=== PATIENT | male | born 1950 | race Caucasian/White ===

== ENCOUNTER 2020-04-01 11:09 | Inpatient (IN) | payer MEDICARE, BC ==
[~2020-04-01] VITALS: Ht 175.3 cm; Wt 65.9 kg
[2020-04-01] MEDS ORDERED: BISACODYL 10 MG SUPP PR ONE (12:15)
[2020-04-01] MEDS ORDERED: NS 500 ML IV ONE ×2 (14:30→15:45)
--- NOTE | 2020-04-01 14:36 | REP ---
REASON: Nausea, vomiting, constipation. A few nondilated gas-filled small bowel loops are seen in the right abdomen. The intestinal gas pattern is nonspecific. The organ silhouettes are unremarkable. The osseous structures are within normal limits. IMPRESSION: Possible mild small bowel ileus. Electronically Signed by Rodrigo Curry DO 04/01/2020 02:41 P
[2020-04-01] MEDS: GASTROGRAFIN SOLUTION 30ML PO SCH ×2 (14:55→15:30)
[2020-04-01 15:11] LABS: BASO % 0.3 % (0.0-1.0); EOS # 0.1 10^3/uL (0.0-0.5); EOS % 0.7 % (0.0-3.0); HEMATOCRIT 39.6 % (42.0-52.0); HEMOGLOBIN 13.2 g/dl (13.5-17.5); LYMPH # 0.7 10^3/uL (1.5-5.0); LYMPH % 9.9 % (24.0-44.0); MEAN CORPUSCULAR HEMOGLOBIN 28.6 pg (27.0-33.0); MEAN CORPUSCULAR HGB CONC 33.3 g/dl (32.0-36.5); MEAN CORPUSCULAR VOLUME 85.9 fl (80.0-96.0); MONO # 0.8 10^3/uL (0.0-0.8); MONO % 11.6 % (0.0-5.0); NEUTROPHILS # 5.5 10^3/uL (1.5-8.5); NEUTROPHILS % 77.2 % (36.0-66.0); PLATELET COUNT, AUTOMATED 302 10^3/uL (150-450); RED BLOOD COUNT 4.61 10^6/uL (4.30-6.10); WHITE BLOOD COUNT 7.2 10^3/uL (4.0-10.0)
[2020-04-01] MEDS ORDERED: DEXTROSE 50% 50 ML SYRINGE IV SCH (15:30)
[2020-04-01] MEDS ORDERED: HumuLIN R (REGULAR) INSULIN (NovoLIN R) **100U/ML** PER UNIT IV ONE (15:30)
[2020-04-01] MEDS ORDERED: LIDOCAINE 2% 5ML JELLY UROJET TOP ONE (15:30)
[2020-04-01] MEDS ORDERED: CALCIUM GLUCONATE 1,000 MG in D5W MINI-BAG PLUS 100 ML IV ONE (15:30)
[2020-04-01] MEDS ORDERED: LABETALOL 100MG/20ML VIAL IV STA (17:00)
[2020-04-01] MEDS ORDERED: cefTRIAXone SOD 1 GM in D5W MINI-BAG PLUS 50 ML IV ONE (17:00)
[2020-04-01] MEDS ORDERED: MORPHINE 2 MG/ML 1ML VIAL (J2270) IV ONE (17:00)
[2020-04-01] MEDS ORDERED: ACETAMINOPHEN TAB 650MG DOSE (2X325MG) PO PRN (17:30)
[2020-04-01 18:48] LABS: ALBUMIN 3.6 GM/DL (3.2-5.2); CALCIUM LEVEL 9.1 MG/DL (8.8-10.2); CREATININE FOR GFR 15.7 MG/DL (0.70-1.30); GLOMERULAR FILTRATION RATE 3.3 (>42); PHOSPHORUS LEVEL 7.8 MG/DL (2.5-4.9); POTASSIUM SERUM 5.4 MEQ/L (3.5-5.1)
[2020-04-01 18:50] VITALS: BP 186/92
[2020-04-01 20:00] VITALS: BP 160/90
--- NOTE | 2020-04-01 20:17 | CR ---
DATE OF CONSULTATION: 04/01/2020 REQUESTING PHYSICIAN: Dr. Kate in the emergency room. CONSULTING PHYSICIAN: Dr. Bhargavi aCt REASON FOR CONSULTATION: Management of renal failure, hyperkalemia and metabolic acidosis. CHIEF COMPLAINT: The patient presented to the hospital with constipation, difficulty with urination, and progressive weakness. HISTORY OF PRESENT ILLNESS: Mr. Jamie Evans is a 69-year-old male with no significant past medical history. He has not seen a physician for more than 5 years; last time he ever saw a physician was when he was in the [employer] in 2014. He does not take any medications at home, and he regularly does exercise. He reports that he walks almost 5 miles a day. He presented to the hospital emergency room today because of progressive weakness, nausea, decreased appetite, which has been going on for the last 3 months almost. The patient reports that he is getting more and more constipated. He has a bowel movement almost once a week. Last time he had a bowel movement before coming to the emergency room (ER) was about 5 days ago. He also reports difficulty with urination, and he has to exert a lot, and every time he tries to urinate, a very small amount of urine comes out. His appetite is decreasing, and he is getting more and more nauseated nowadays. He usually walks about 5 miles a day, but his strength is decreasing, and he is unable to walk a few yards now because of weakness and lack of energy. Further evaluation in the emergency room showed that the patient was in renal failure. Point of care testing in the emergency room showed that his creatinine was more than 20. He had a potassium of 7.2 and blood urea nitrogen was more than 140. The patient needed my immediate attention. I emergently saw the patient in the emergency room today in the afternoon. The patient was able to provide his history when I saw him. He had already gotten IV normal saline bolus by the time I saw him. He had already been given IV calcium gluconate as well. PAST MEDICAL HISTORY: No significant past medical history. The patient denies any medical issues, and he does not take any medications. PAST SURGICAL HISTORY: No significant past surgical history. ALLERGIES: No known drug allergies. FAMILY HISTORY: No significant family history of end-stage renal disease requiring hemodialysis. SOCIAL HISTORY: The patient lives at home. He is very active. He denies any illicit drug abuse or alcohol abuse. REVIEW OF SYSTEMS: Constitutional: Patient reports feeling very weak and tired. Eyes: He denies any blurry vision, double vision. Ear, Nose, Throat (ENT): Denies any dysphagia, odynophagia or ear discharge. Cardiovascular: He reports shortness of breath on mild exertion. He denies any palpitations or lower extremity edema. Respiratory: He denies any cough or phlegm. He does report getting short of breath on mild exertion. Gastrointestinal (GI): He reports nausea and decreased appetite and constipation. Genitourinary: He reports decreased urine output and difficulty with urination. Musculoskeletal: He reports muscle fatigue. Skin: He denies any rashes or ulcers/ Hematology/Oncology: He denies any easy bleeding or bruising. Endocrine: He denies any history of hyperthyroidism, hypothyroidism, polyphagia or polyuria. Psych: He denies any depression or anxiety. All other review of systems is negative. PHYSICAL EXAMINATION: General: The patient is awake, alert, oriented times three, laying in bed, mild painful distress. Vital signs: Temperature is 97.7 degrees Fahrenheit, blood pressure 187/98, pulse is 88, respiratory rate of 18, saturating 99% on room air. Head and Neck Exam: Extraocular muscles intact. Pupils equally round and reactive to light. Mucous membranes are moist. Tongue has white coating. Neck is supple. Mild elevation of jugular venous distention (JVD). Cardiovascular: S1, S2, regular rate. No edema of the bilateral lower extremities. Respiratory: Chest is clear to auscultation bilaterally. Bilateral equal air entry. No rales or rhonchi. Abdomen is soft. It is distended. Mildly tender to deep rotation in suprapubic region. His bladder is palpable starting from with suprapubic region all the way up to his umbilicus. Bedside bladder scan was done which showed more than 900 mL of residual urine in the bladder. Genitourinary: No inguinal hernia was noted and bladder was palpable as mentioned above. Musculoskeletal: No clubbing or cyanosis. Pulses are 2+. Central nervous system (SCAN COORDINATOR): No focal deficit. No asterixis was noted. The patient moves all extremities and follows commands. Skin: No rashes or ulcers. Lymph nodes: No significant cervical, axillary, or inguinal lymphadenopathy. LAB REVIEW: CBC showed a WBC of 7.2, hemoglobin 13.2, platelets are 302. No urinalysis is available at this time. Point of care BMP done originally showed glucose 96, sodium 133, potassium 7.2, chloride 109, bicarbonate of 13, ionized calcium 3.9, creatinine 20 and hematocrit was 34. Point of care blood gas showed a pH of 7.23. IMAGING STUDIES: An abdominal x-ray was done, which showed mild small bowel ileus. The patient also had CT scan of the abdomen and pelvis. Official report is still pending. However, as read by myself, the patient had urinary retention, bladder was enlarged up to his umbilicus, and he had bilateral hydroureteronephrosis. HOME MEDICATIONS: The patient does not take any medications at home. CURRENT MEDICATIONS: The patient has received 500 mL of normal saline bolus times two doses so far, and he received calcium gluconate 1 gram IV. ASSESSMENT: 69-year-old male with acute renal failure, urinary retention, bilateral hydroureteronephrosis, high anion gap metabolic acidosis, hyperkalemia. PLAN: 1. Acute renal failure. The patient has acute renal failure secondary to bilateral hydroureteronephrosis and obstructive uropathy. He got a Louis catheter placed in the emergency room. More than 1 liter of urine came out. Urine was initially clear, later on it was blood tinged. I am hopeful that patient's renal function will improve over the next 24-48 hours. I would avoid doing hemodialysis on this patient. 2. High anion gap metabolic acidosis. It is secondary to renal failure. The patient will get IV bicarb containing fluid, half-normal saline plus 75 mEq of bicarb at 150 mL an hour for a total of 2 liters. Bicarb level should improve with improvement in the renal function. 3. Hyperkalemia. The patient's potassium on arrival was more than 7. Hyperkalemia secondary to metabolic acidosis and renal failure. With postobstructive diuresis, patient's potassium should improve, and I believe the patient would actually need potassium repletion with improving renal function and diuresis. 4. Obstructive uropathy and bilateral hydroureteronephrosis. The patient has an enlarged prostate on the imaging. His PSA level was done in the emergency room, which is 9.3. There is a high likelihood that the patient might have of a malignancy in the prostate because I see some calcifications in the prostate as well. Continue the Louis catheter at this time. The patient has been started on Flomax and finasteride, and once he is more stable, he will need to be seen by urology as well for prostate biopsy. 5. Hyperphosphatemia. It is secondary to renal failure. Phosphorus level should improve with improving renal function. 6. Hypertensive urgency. It is secondary to a combination of pain, obstructive uropathy and renal failure. The patient was given a dose of labetalol 10 mg IV in the emergency room by myself. I am hopeful that with further diuresis, his blood pressure should improve and he would not require a regular antihypertensive regimen. 7. Hematuria. It is secondary to decompression of the bladder after insertion of Louis catheter. Hopefully his hematuria should improve over the next 24-48 hours. The patient was given one dose of ceftriaxone 1 gram IV. Urinalysis and urine culture has been sent. PLAN: Plan of care was discussed with the ER physician, Dr. Kate, and also with the admitting medical practice assistant. Total critical care time spent in the management of this patient today afternoon in the emergency room was 1 hour and 40 minutes.
[2020-04-01] MEDS: SODIUM BICARBONATE 75 MEQ in NS 0.45% 1,000 ML IV SCH (20:22)
[2020-04-01] MEDS: HEPARIN SOD (PORCINE) 5000UNITS/ML VIAL (J1644 PER 1000UNITS) SC SCH (20:22)
[2020-04-01] MEDS: TAMSULOSIN 0.4 MG CAP PO SCH (20:23)
[2020-04-01] MEDS: FINASTERIDE 5 MG TAB PO SCH (20:23)
[2020-04-01 21:47] LABS: CALCIUM LEVEL 8.4 MG/DL (8.8-10.2); CREATININE FOR GFR 11.9 MG/DL (0.70-1.30); GLOMERULAR FILTRATION RATE 4.5 (>42); POTASSIUM SERUM 4.9 MEQ/L (3.5-5.1)
[2020-04-01] MEDS ORDERED: POTASSIUM CHLORIDE 10 MEQ SR TABLET PO ONE (23:15)
--- NOTE | 2020-04-01 23:28 | IPNPDOC ---
Text Note Date of Service The patient was seen on 04/01/20. Of note this is his H&P done in conjunction with one of the residents I am supervising today. NOTE CHIEF COMPLAINT: Constipation and urinary retention HISTORY OF PRESENT ILLNESS: Juan Ayala is a 69 years old male patient who came into the emergency department with complaints of constipation for the last 5 days, and decreased urine output since 5 days. His last bowel movement was 6 days ago hard stool, no blood. He reports having decreased appetite and decreased fluid intake as he is not able to urinate. He reports having nausea. Denies having any vomiting. He reports having mild headaches and was taking aspirin. PAST MEDICAL HISTORY: He denies having any past medical history (his last contact with a doctor was in 2014 for a physical examination) PAST SURGICAL HISTORY: 1. Appendectomy at age 15 2. Tonsillectomy at age 4 SOCIAL HISTORY: Resides in: By Himself and has a pet (cat) Employment: Retired. Previous worked at [employer] Tobacco use: Stopped smoking in 1995. Smoked 2 PPD started at age 15 ETOH: Stopped in 1995 Illicit drug use: Denies IV drug use: Denies Other relevant social factors: None FAMILY HISTORY: No pertinent positive family history. Denies having any cancers in the family. ALLERGIES: Please see below. REVIEW OF SYSTEMS: Constitutional: Denies having fever, chills, night sweats, weight loss. 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 Denies any blurry vision or double vision. ENT: Dry lips and dry tongue,Denies any dysphagia, odynophagia, ear discharge. Cardiovascular: Denies any chest pain or palpitations. Respiratory: Denies shortness of breath and cough. Gastrointestinal (GI): Denies any nausea or vomiting. Genitourinary:Has been having constipation and urinary retention. Musculoskeletal: Denies any muscle aches and pains. Skin: Denies any rashes or ulcers. Hematology/Oncology: Denies any easy bleeding or bruising. Endocrine: Denies cold intolerance, heat intolerance, polydipsia, polyphagia, polyuria All other review of systems is negative. HOME MEDICATIONS: Please see below. PHYSICAL EXAMINATION: Vital Signs: See below General: Well developed, built: normal. Patient is awake, alert, oriented times three, on bed and acute distress from lower abdominal pain. Eyes: Conjunctiva clear, but a R ectropion is noted. Pupils equal round and reactive to light and accommodation. EOM full. ENT: Diminished hearing bilaterally and reports having tinnitus. No nasal deviation, oropharynx clear and dry . Neck: supple, no masses, trachea midline, no thyroid nodules, masses, tenderness or enlargement. Cardiovascular: S1, S2, normal rhythm, no murmur, rub, or gallop; no JVD, no displacement of PMI, no carotid or abdominal bruits. Pulses: Carotid, radial, posterior tibialis and pedal 3+ symmetric, no edema. Respiratory: Chest is clear to auscultation bilaterally, normal tactile fremitus, no egophony, normal respiratory effort with no use of accessory muscles. No dullness to percussion, diaphragm moves well with respiration. No rhonchi, wheezes or rubs. Abdomen: Soft, bowel sounds positive, no bruits. Has tenderness on palpation of the lower abdomen. Liver edge, spleen, kidney not felt, no masses. Extremities: No clubbing or cyanosis. No edema, no tenderness. Spine: No kyphosis, no paraspinal tenderness, no costovertebral tenderness. Skin: No rashes, lesions, ulcerations, subcutaneous nodules or induration. LABORATORY DATA: See below. IMAGING: Abdominal x-ray: IMPRESSION: Possible mild small bowel ileus. Abdominal/pelvic CT: Report pending ASSESSMENT: 69-year-old male patient with no known medical comorbidities, came into the emergency department with constipation and urinary retention. . PLAN: 1. Metabolic acidosis: Emergency department, patient had a pH of 7.2, HCO3: 10.7, PCO2 : 25.1, will give him half NS, D5, HCO3 X 2 L. Will get urine analysis and urine cultures to rule out infection. We will monitor him monitored in PCU. 2. Hyperkalemia: potassium 7.2, EKG showing tall T waves. . He did get calcium gluconate/dextrose and IV fluids in the ED. Now on a bicarbonate drip managed by nephrology to help stabilize his potassium levels. BMP are being checked every 4 hours. 3. Severe EVERARDO, secondary to an obstructive uropathy: Nephrology was consulted and will follow him with us. I am hopeful that he will regain full renal function. 4. BPH: Primary cause for acute urinary retention, abdominal/pelvic CT showing prostate hypertrophy we will get his PSA, will start him on Rocephin and finasteride. The PSA may be elevated b/c of the recent catheterization. 5. Constipation: His constipation is more likely due to enlarged prostate and distended urinary bladder. Will monitor. If doesnt improve, will give him Colace. 6. Anorexia: His decreased appetite was due to distended abdomen 7. Elevated blood pressure: Most likely due to pain. Morphine 2 mg IV was given. DVT prophylaxis: Heparin 5000 units Q12H Disposition: Patient will be transferred to PCU and will be conducted to telemetry for further monitoring of his electrolytes and tachycardia. VS,Fishbone, I+O VS, Fishbone, I+O Laboratory Tests 04/01/20 14:51 04/01/20 17:48 04/01/20 21:05 Vital Signs Date Time Temp Pulse Resp B/P (MAP) Pulse Ox O2 Delivery O2 Flow Rate FiO2 04/01/20 20:00 98.4 66 16 160/90 (113) 98 Room Air Mango Rubi MD Apr 01, 2020 23:28
[2020-04-02] VITALS: BP 160/83
[2020-04-02 01:34] LABS: CALCIUM LEVEL 8.4 MG/DL (8.8-10.2); CREATININE FOR GFR 9.2 MG/DL (0.70-1.30); GLOMERULAR FILTRATION RATE 6.1 (>42); POTASSIUM SERUM 4.8 MEQ/L (3.5-5.1)
[2020-04-02 04:00] VITALS: BP 180/87
[2020-04-02] MEDS: SODIUM BICARBONATE 75 MEQ in NS 0.45% 1,000 ML IV SCH (04:12)
[2020-04-02 05:15] LABS: HEMOGLOBIN 11.4 g/dl (13.5-17.5); MEAN CORPUSCULAR HGB CONC 34.5 g/dl (32.0-36.5); PLATELET COUNT, AUTOMATED 309 10^3/uL (150-450); RED BLOOD COUNT 3.93 10^6/uL (4.30-6.10)
[2020-04-02 05:44] LABS: CALCIUM LEVEL 8.3 MG/DL (8.8-10.2); CREATININE FOR GFR 8.23 MG/DL (0.70-1.30); GLOMERULAR FILTRATION RATE 6.9 (>42); POTASSIUM SERUM 5.7 MEQ/L (3.5-5.1)
[2020-04-02 08:00] VITALS: BP_SYST 139; BP_SYST 179; BP_DIAS 65; BP_DIAS 82
--- NOTE | 2020-04-02 08:03 | ECGEPIP ---
[facility] - ED Test Date: 2020-04-01 Pat Name: FAVIO CORDERO Department: Room: - Gender: Male Field Sales Engineer: : 1950 Requested By: PAVEL GOLDBERG PA-C. Order Number: [id number] Reading MD: Jack Wilcox Measurements Intervals [place] Rate: 74 P: 62 MI: 140 QRS: 53 QRSD: 82 T: 45 QT: 360 QTc: 400 Interpretive Statements SINUS RHYTHM NO PRIORS FOR COMPARISON Electronically Signed on 04-02-2020 8:03:16 EDT by Jack Wilcox
[2020-04-02] MEDS: amLODIPine 5 MG TAB PO SCH (08:38)
[2020-04-02] MEDS: HEPARIN SOD (PORCINE) 5000UNITS/ML VIAL (J1644 PER 1000UNITS) SC SCH ×2 (08:39→20:18)
--- NOTE | 2020-04-02 08:42 | REP ---
REASON: Abdominal pain. Renal failure. PRIORS: None. The lack of intravenous contrast decreases the sensitivity of the exam. There is ascites. There is rather marked bilateral perinephric stranding with both Gerota's and Zuckerkandl fascial thickening. This is seen greater on the left than right. There is bilateral hydronephrosis and hydroureter. Urinary bladder is grossly distended. Along the posterior inferior flow of the urinary bladder, there is an irregular soft tissue density, which is difficult to delineate between that and abnormally enlarged irregular prostate gland invaginating into the urinary bladder floor. There is corpora amylacea. The gallbladder, spleen, pancreas, adrenal glands are unremarkable. The abdominal aorta and para-aortic regions are within normal limits. There is no intestinal obstruction. The bowel loops are within normal limits. Bone window technique throughout the examination shows the osseous structures to be within normal limits for the patient's age. There is a slight left pleural effusion and evidence of left lower lobe and evidence of subsegmental atelectatic change. IMPRESSION: 1. There is marked distention of the urinary bladder with evidence of a urinary bladder floor mass versus invagination of an irregular prostate gland into the posterior urinary bladder. This needs to be evaluated urologically. 2. There is advanced thickening of Zuckerkandl and Gerota fascia bilaterally but left greater than right with advanced bilateral perinephric stranding. This needs to be followed to resolution. 3. There is ascites of uncertain etiology. This too, needs to be evaluated clinically with followup. 4. There is a slight left pleural effusion with evidence of dependent subsegmental atelectatic change in the left lung base. Correlate clinically to right upper lobe out the possibility of subtle concomitant left lower lobe pneumonia. 5. Other findings as described above. Electronically Signed by Rodrigo Curry DO 04/02/2020 05:18 P
[2020-04-02] MEDS ORDERED: PREVNAR 13 VACCINE SYRINGE (CPT CODE:90670) IM ONE (09:00)
[2020-04-02 09:44] LABS: CALCIUM LEVEL 8.6 MG/DL (8.8-10.2); CREATININE FOR GFR 7.16 MG/DL (0.70-1.30); GLOMERULAR FILTRATION RATE 8.1 (>42); POTASSIUM SERUM 4.9 MEQ/L (3.5-5.1)
[2020-04-02] MEDS ORDERED: MIRALAX *UNIT DOSE* 17GM PACKET PO ONE (11:15)
[2020-04-02] MEDS: NS 0.45% 1,000 ML IV SCH ×2 (11:25→18:17)
--- NOTE | 2020-04-02 11:37 | IPNPDOC ---
Text Note Date of Service The patient was seen on 04/02/20. NOTE SUBJECTIVE: Patient was seen and examined today laying comfortably in bed. He state the pressure in his abdomen has improved. He continues to feel pressure in his low back and states this improved by standing up and stretching. He continues to have hematuria draining out the hinton. OBJECTIVE: VITAL SIGNS: See below GENERAL: Alert, comfortable, in no acute distress HEENT: Normocephalic, atraumatic, sclera anicteric, conjunctiva clear, moist mucous membranes NECK: Supple, trachea midline, no lymphadenopathy, no JVD CARDIOVASCULAR: Regular rate and rhythm, normal S1 and S2. No murmurs, rubs, or gallops RESPIRATORY: Clear to auscultation bilaterally with equal air entry bilaterally. No wheezing, rhonchi, or rales. ABDOMEN: Soft, nondistended, bowel sounds present, mildly tender to deep palpation of the suprapubic region. EXTREMITIES: No cyanosis or edema. Pulses 2+/4 in bilateral upper and lower extremities SKIN: [place], warm, dry NEUROLOGIC: Alert and oriented x3 to person, place and time. No focal deficits appreciated PSYCHIATRIC: Mood and affect appropriate ASSESSMENT/PLAN: 69 year old male who presented with acute renal failure with urinary retention secondary to enlarged prostate # Acute renal failure secondary to obstructive uropathy with bilateral hydro nephrosis - obstruction temporarily relieved with hinton catheter placement, pt continues to have good urine output - Cr trending down, continue to monitor for improvement - nephrology consulted, appreciate their input and recommendations - continue on tamsulosin and finasteride per nephrology # Hypertensive urgency - secondary to urinary retention and pain s/p IV labetalol - improved today, started on oral amlodipine, continue to monitor - no history of underlying HTN but patient does not follow with a PCP # Enlarged prostate secondary to cancer vs BPH - enlarged prostate on CT with microcalcifications - elevated PSA at 9.3, drawn after hinton was placed - urology consulted for evaluation and r/o prostate cancer, appreciate their input and recommendations # Hematuria - likely related to bladder overdistention, expect this to resolve over the next day - UA pending to rule out infection, one dose IV rocephin given, may continue abx based on UA results # Elevated anion gap metabolic acidosis, improved - secondary to acute renal failure as discussed above - s/p IV fluids with bicarb, continue with IV fluids per nephrology - anion gap has closed, bicarb has improved - continue on telemetry # Hyperkalemia and Hyperphosphatemia, improving - related to renal failure, continue to trend for improvement - continue on telemetry # Constipation - suspect secondary to obstruction from enlarged prostate and distended urinary bladder - consider enema if no BM by tomorrow DVT prophylaxis: sc heparin Disposition: inpatient PCU pending clinical improvement and stabilization of electrolyte abnormalities Attending attestation: Patient independently evaluated, agree with resident's plan. VS,Fishbone, I+O VS, Fishbone, I+O Laboratory Tests 04/01/20 14:51 04/01/20 17:48 04/01/20 21:05 04/02/20 00:53 04/02/20 04:59 04/02/20 08:47 Vital Signs Date Time Temp Pulse Resp B/P (MAP) Pulse Ox O2 Delivery O2 Flow Rate FiO2 04/02/20 08:38 78 179/82 04/02/20 08:00 99.3 16 96 Room Air I&O- Last 24 Hours up to 6 AM 04/02/20 05:59 Intake Total 1865 ml Output Total 5650 ml Balance -3785 ml PRISCILA ROJAS D.O. Apr 02, 2020 11:37 JULIO MICHAEL MD Apr 06, 2020 10:31
[2020-04-02 11:44] LABS: MAGNESIUM LEVEL 2.1 MG/DL (1.8-2.4)
[2020-04-02 12:00] VITALS: BP 146/69
[2020-04-02 13:18] LABS: BILIRUBIN, URINE MANUAL NEGATIVE (NEGATIVE); GLUCOSE, URINE (UA) MANUAL NEGATIVE (NEGATIVE); KETONE, URINE MANUAL NEGATIVE (NEGATIVE); UROBILINOGEN, URINE MANUAL NORMAL (NORMAL)
[2020-04-02 13:25] LABS: BACTERIA, URINE NONE SEEN; HYALINE CAST, URINE NONE SEEN /lpf (0-1); RBC, URINE TNTC /hpf (0-3); SQUAMOUS EPITHELIAL CELL URINE NONE SEEN /hpf (SMALL AMT)
[2020-04-02 13:26] LABS: MUCUS, URINE SMALL AMOUNT (NEGATIVE)
[2020-04-02 13:34] LABS: CALCIUM LEVEL 8.3 MG/DL (8.8-10.2); CREATININE FOR GFR 5.72 MG/DL (0.70-1.30); GLOMERULAR FILTRATION RATE 10.5 (>42); POTASSIUM SERUM 4.8 MEQ/L (3.5-5.1)
--- NOTE | 2020-04-02 14:44 | IPN ---
DATE OF SERVICE: 04/02/2020 SUBJECTIVE: The patient was seen and examined at the bedside today morning. The patient reports that he is feeling much better today as compared with yesterday. His e abdominal pain is getting better. He still has an indwelling Louis catheter. He has very good urine output. He is making more than 150 mL of urine per hour. Renal function continues to improve. Acidosis is improving. Hyperkalemia is also getting better. He still has mild persistent hematuria and blood pressures are still elevated as of today morning. OBJECTIVE: Vital Signs: Temperature is 99.3 degrees Fahrenheit, blood pressure 179/82, pulse is 78, respiratory rate of 16, saturating 96% on room air. Intake/Output: Urine output recorded is 3.1 liters since overnight. Weight in the bed scale is 65.8 kg. PHYSICAL EXAMINATION: General: The patient is awake, alert, oriented times three, laying in bed, in no apparent distress. Head/Neck Exam: Extraocular muscles intact. Pupils equally round and reactive to light. Mucous membranes are moist. Neck is supple. There is no jugular venous distention (JVD). Cardiovascular: S1, S2, regular rate. No edema of the bilateral lower extremities. Respiratory: Chest is clear to auscultation bilaterally. Bilateral equal air entry. No rales or rhonchi. Abdomen: Soft. Mildly tender to deep palpation in the left lower quadrant and suprapubic region. Genitourinary: He has an indwelling Louis catheter. Urine in the bag is blood tinged. Musculoskeletal: No clubbing or cyanosis. Pulses are 2+. Central Nervous System (MEDICAL BILLING REPRESENTATIVE): No focal deficit. Power is 5/5 in all extremities. LAB REVIEW: Complete blood count (CBC) showed WBC of 7, hemoglobin 11.4, platelets of 309. Basic metabolic panel (BMP) showed sodium 142, potassium 4.9, chloride 109, bicarbonate 23, BUN 93, creatinine is 7.1, calcium is 8.6. IMAGING: Official report of the CT scan abdomen and pelvis is back. It shows marked distension of the urinary bladder and irregular prostate gland with invagination into the bladder and advanced thickening of the Zuckerkandl and Gerota fascia bilaterally. CURRENT INPATIENT MEDICATIONS: The patient's medications were all reviewed by myself. He was getting half normal saline plus 75 mEq bicarbonate at 150 mL/h. He had gotten 2 liters of bicarbonate containing fluid. Now, I have changed the IV fluids to half normal saline at 150 mL/h. I have also started him on amlodipine 5 mg by mouth daily because of elevated blood pressures. No other significant change in the medications today as compared with yesterday. ASSESSMENT/PLAN: 1. Acute renal failure. It was secondary to obstructive uropathy and bilateral hydroureteronephrosis. The patient is making very good amount of urine. His creatinine, BUN is trending down since yesterday. Continue the IV fluid hydration and continue to encourage oral hydration. The patient's IV fluids have been changed to half normal saline at 150 mL/h for postobstructive diuresis. 2. High anion gap metabolic acidosis. The patient's bicarbonate level is significantly getting better with the IV bicarbonate containing fluids and with the improving renal function his bicarbonate should stay stable. IV bicarbonate has been stopped. He is only getting half normal saline now. No need of oral bicarbonate administration. 3. Hyperkalemia. Potassium level has improved. I actually gave him a dose of potassium chloride 40 mEq last night. With postobstructive diuresis we have to watch him now for hypokalemia. 4. Obstructive uropathy and mass in the prostate. The patient has elevated prostate-specific antigen (PSA) levels. There is a mass in the prostate. He needs to be evaluated by urology for a biopsy to rule out possible cancer of the prostate. 5. Hypertension. The patient's blood pressure is still elevated. He was started on amlodipine 5 mg daily. I am hopeful that once his renal function improves his blood pressure should get better. 6. Hematuria. The patient had hematuria after Louis catheter placement, which is coming from the bladder. Hopefully it should get better over the next 24-48 hours. 7. Constipation. The patient is still passing gas. He has not had a bowel movement. He was given a dose of MiraLAX today. If needed, he will be given mineral oil enema tomorrow morning.
[2020-04-02 16:00] VITALS: BP 140/66
[2020-04-02 17:14] LABS: CREATININE FOR GFR 4.89 MG/DL (0.70-1.30); GLOMERULAR FILTRATION RATE 12.6 (>42); POTASSIUM SERUM 4.5 MEQ/L (3.5-5.1)
[2020-04-02 20:00] VITALS: BP 150/79
[2020-04-02] MEDS: TAMSULOSIN 0.4 MG CAP PO SCH (20:17)
[2020-04-02] MEDS: FINASTERIDE 5 MG TAB PO SCH (20:18)
--- NOTE | 2020-04-02 21:29 | SMCUROLCON ---
Urology Consultation General Date of Consultation 04/02/20 Reason For Consultation This patient is seen for urinary retention, BPH, elevated PSA 9.3, hematuria, and bilateral hydroureteronephrosis. History of Present Illness The patient is a 69-year-old white male with no past medical history for BPH or voiding problems. He states that he normally voids about every 2 hours day and night and has good control of his urine flow, no urgency or difficulty initiating or stopping urinary stream. In the last 6 weeks or so, this is began to change and at times he feels like he has to void every 30 minutes. He finally presented to the emergency room with complaints of constipation for about a week with decreased urine output for about the same length of time. He states he has not been eating or drinking much because he just has not had any thirst or appetite. When he does feel like he needs to void, he has difficulty initiating the urinary stream, now. Upon presentation to the hospital, CT scan was obtained showing the patient had an extremely large bladder up to the umbilicus and, when a Louis catheter was inserted, a liter of urine was drained. The latter part of the urine flow became hematuric. His PSA was also tested and was 9.3. He states he has never had a colonoscopy or a prostate exam in the past. He scan also showed bilateral hydroureteronephrosis and laboratory studies showed acute renal insufficiency with a low EGFR. Past Medical History Medical History Denies any medical problems Surgical Hstory Appendectomy at age 15. 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 He states he normally walks 4 miles a day, which takes him 2 hours. * Smoker: former Smoker Alcohol: other (patient stopped drinking in 1995) Drugs: denies Medications Current Medications Current Medications Medications (Trade) Dose Ordered Sig/Juliann Route PRN Reason Start Time Stop Time Status Last Admin Dose Admin Acetaminophen (Tylenol Tab) 650 mg Q4H PRN PO PAIN OR FEVER 04/01/20 17:30 Amlodipine Besylate (Norvasc) 5 mg DAILY PO 04/02/20 09:00 04/02/20 08:38 Dextrose (Dextrose 50%) 50 ml ASDIRECTED IV 04/01/20 15:30 04/01/20 15:47 Diatrizoate Meglum/ Diatrizoate Sod (Gastrografin) 10 ml Q30M PO 04/01/20 15:00 04/01/20 15:31 DC 04/01/20 14:55 Finasteride (Proscar) 5 mg QHS PO 04/01/20 21:00 04/02/20 20:18 Heparin Sodium (Porcine) (Heparin) 5,000 units Q12H SC 04/01/20 21:00 04/02/20 20:18 Home Med (Med Rec Complete!) ASDIRECTED XX 04/01/20 16:15 04/01/20 16:08 DC Labetalol HCl (Normodyne, Trandate) 10 mg STAT STAT IV 04/01/20 17:00 04/01/20 17:04 DC 04/01/20 17:51 Sodium Bicarbonate 75 meq/Sodium Chloride 1,075 ml @ 150 mls/hr Q7H10M IV 04/01/20 20:00 04/02/20 09:19 DC 04/02/20 04:12 Sodium Chloride 1,000 ml @ 150 mls/hr Q6H40M IV 04/02/20 11:15 04/03/20 11:14 04/02/20 18:17 Tamsulosin HCl (Flomax) 0.4 mg QHS PO 04/01/20 21:00 04/02/20 20:17 Allergies Allergies: Coded Allergies: No Known Allergies (Unverified , 04/01/20) Review of Systems General: Reports: Normal Appetite; Denies: Fatigue, Malaise Constitutional: Denies: Fever, Chills, Sweats, Weakness, Malaise Eyes: Denies: Pain, Vision change ENT: Denies: Head Aches, Sore Throat, Epistaxis Skin: Denies: Rash, Lesions, Breakdown, Nail Changes Pulmonary: Denies: Dyspnea, Cough Cardiovascular: Denies Chest Pain, Denies Palpitations Gastrointestinal: Reports: Constipation Genitourinary: Reports: Retention Hematologic: Denies: Bruising, Bleeding Excessively Endocrine: Denies: Polydipsia, Polyphagia, Polyuria Musculoskeletal: Reports: Other Symptoms (muscle weakness); Denies: Neck Pain, Back Pain Psych: Reports: Mood Normal; Denies: Anxiety, Depression Physical Examination General Exam: Alert, No Acute Distress EYE EXAM: PERRLA, Conjunctiva & lids normal, EOMI; No: Sclera icteric ENT EXAM: Atraumatic, Mucous membr. moist/pink, Pharynx Normal Neck Exam: Supple; No: JVD, thyromegaly Chest Exam: Clear to auscultation, Normal air movement Heart Exam: Rate Normal, Regular Rhythm, Normal S1, Normal S2; No: Murmurs, Rubs Abdomen Exam: Normal Bowel Sounds, Soft; No: Tenderness, Hepatospenomegaly Male Exam Penis is uncircumcised with an indwelling Louis catheter. Scrotum, testicles, epididymides, perineum are normal. Rectal: Good sphincter tone, although tight area. The prostate is 70 or 80 g in size. The right side is larger than the left. No indurations are present. Skin Exam: Nl turgor and temperature; No: Rash, Breakdown Neuro Exam: Normal Gait, Normal Speech, Cranial Nerves 3-12 NL, Reflexes 2+ Psych Exam: Mental status NL, Mood NL, Oriented x 3 Vital Signs/I&O Vital Signs Date Time Temp Pulse Resp B/P (MAP) Pulse Ox O2 Delivery O2 Flow Rate FiO2 04/02/20 16:00 99.6 76 18 140/66 (90) 93 Room Air I&O- Last 24 Hours up to 6 AM 04/02/20 06:00 Intake Total 1865 ml Output Total 5650 ml Balance -3785 ml Laboratory Data 24H Labs Laboratory Tests 2 04/02/20 00:53: Anion Gap 12, Glomerular Filtration Rate 6.1L, Calcium Level 8.4L 04/02/20 04:59: Anion Gap 13, Glomerular Filtration Rate 6.9L, Calcium Level 8.3L, Nucleated Red Blood Cells % (auto) 0.0 04/02/20 08:47: Anion Gap 10, Glomerular Filtration Rate 8.1L, Calcium Level 8.6L, Magnesium Level 2.1 04/02/20 11:30: Urine Color (OMAR) BROWNH, Urine Appearance (OMAR) CLOUDYH, Urine pH (OMAR) 5.0, Urine Specific [place] (OMAR) 1.012, Urine Protein 3+H, Bedside Urine Glucose (UA) NEGATIVE, Bedside Urine Ketones (LAB) NEGATIVE, Bedside Urine Blood POSITIVEH, Bedside Urine Nitrite (LAB) NEGATIVE, Bedside Urine Bilirubin (LAB) NEGATIVE, Bedside Urine Urobilinogen (LAB) NORMAL, Bedside Urine Leukocyte Esterase (L TRACEH, Urine Sediment Examination PERFORMED, Urine RBC TNTCH, Urine WBC 0-1, Urine Squamous Epithelial Cells NONE SEEN, Urine Bacteria NONE SEEN, Urine Hyaline Casts NONE SEEN, Urine Mucus SMALL AMOUNTH 04/02/20 12:58: Anion Gap 7L, Glomerular Filtration Rate 10.5L, Calcium Level 8.3L 04/02/20 16:37: Anion Gap 8, Glomerular Filtration Rate 12.6L, Calcium Level 8.0L CBC/BMP Laboratory Tests 04/02/20 00:53 04/02/20 04:59 04/02/20 08:47 04/02/20 12:58 04/02/20 16:37 Microbiology Microbiology 04/02/20 Urine Culture, Received Pending Assessment I reviewed the CT scan. The bladder was extremely large but reports held a liter of urine. The prostate is very generous in size - measuring about 127 gms - with a large median lobe which appears somewhat irregular protruding into the bladder. There are also some prostate calcifications present which are not particularly unusual. Hydroureter ureteronephrosis, which most likely is due to his urinary retention. This should resolve with Louis catheterization. Hematuria is also likely to bladder decompression and this should resolve within 24 hours. I would keep Louis catheter indwelling until constipation has improved. I also agree with continuing with his tamsulosin and finasteride. If the urine should not clear, he may need either continuous bladder irrigation or manual irrigation periodically. PSA of 9.3 could be due to an enlarged and inflamed prostate, but of course prostate cancer should be ruled out. He likely will need a cystoscopic evaluation at the very least to evaluate the bladder outlet obstruction. Also, consideration to a transurethral ultrasound of the prostate with or without prostate biopsies. Plan Continue Louis catheterization until constipation has been cleared up. Continue finasteride and tamsulosin. Irrigated bladder when necessary for hematuria. Hydrate and repeat labs for his renal insufficiency. This should improve with hydration and bladder drainage. The hematuria will likely clear up by itself, also, with better hydration. I will continue to follow patient with you and will make arrangements to see him in the clinic after discharge. Time Spent on Consult: Time Spent / Consult (Minutes): 75 MARLIN HEALY MD Apr 02, 2020 21:29
[2020-04-03] VITALS: BP 128/70
[2020-04-03] MEDS: NS 0.45% 1,000 ML IV SCH ×2 (00:02→07:29)
[2020-04-03 04:00] VITALS: BP 155/73
[2020-04-03 06:10] LABS: HEMATOCRIT 29.1 % (42.0-52.0); HEMOGLOBIN 9.9 g/dl (13.5-17.5); MEAN CORPUSCULAR VOLUME 85.3 fl (80.0-96.0); PLATELET COUNT, AUTOMATED 285 10^3/uL (150-450); RED BLOOD COUNT 3.41 10^6/uL (4.30-6.10); WHITE BLOOD COUNT 5.7 10^3/uL (4.0-10.0)
[2020-04-03 06:38] LABS: CALCIUM LEVEL 7.9 MG/DL (8.8-10.2); CREATININE FOR GFR 2.37 MG/DL (0.70-1.30); GLOMERULAR FILTRATION RATE 29.1 (>42); PHOSPHORUS LEVEL 3.3 MG/DL (2.5-4.9); POTASSIUM SERUM 4.1 MEQ/L (3.5-5.1)
[2020-04-03 08:00] VITALS: BP 131/60
[2020-04-03] MEDS: amLODIPine 5 MG TAB PO SCH (08:20)
[2020-04-03] MEDS: HEPARIN SOD (PORCINE) 5000UNITS/ML VIAL (J1644 PER 1000UNITS) SC SCH (08:21)
[2020-04-03 11:26] LABS: PERCENT SATURATION 20.4 % (19.7-50.0)
[2020-04-03 12:00] VITALS: BP 136/79
[2020-04-03] MEDS ORDERED: FLEET OIL RETENTION ENEMA PR ONE (12:00)
[2020-04-03] MEDS ORDERED: NS 0.45% 1,000 ML IV SCH (12:00)
[2020-04-03] MEDS ORDERED: IRON SUCROSE 200 MG in NS 100 ML IV ONE (15:00)
[2020-04-03 16:00] VITALS: BP 125/58
--- NOTE | 2020-04-03 17:15 | IPNPDOC ---
Text Note Date of Service The patient was seen on 04/03/20. NOTE SUBJECTIVE: Patient was seen and examined today laying comfortably in bed. He state the pressure in his abdomen has now completely resolved and the pressure in his lower back is also improved. He has not yet had a bowel movement. He continues to have hematuria draining out the hinton. He states he has been up walking in the halls without difficulty. OBJECTIVE: VITAL SIGNS: See below GENERAL: Alert, comfortable, in no acute distress HEENT: Normocephalic, atraumatic, sclera anicteric, conjunctiva clear, moist mucous membranes NECK: Supple, trachea midline, no lymphadenopathy, no JVD CARDIOVASCULAR: Regular rate and rhythm, normal S1 and S2. No murmurs, rubs, or gallops RESPIRATORY: Clear to auscultation bilaterally with equal air entry bilaterally. No wheezing, rhonchi, or rales. ABDOMEN: Soft, nondistended, bowel sounds present, mildly tender to deep palpation of the suprapubic region. EXTREMITIES: No cyanosis or edema. Pulses 2+/4 in bilateral upper and lower ext remities SKIN: [place], warm, dry NEUROLOGIC: Alert and oriented x3 to person, place and time. No focal deficits appreciated PSYCHIATRIC: Mood and affect appropriate ASSESSMENT/PLAN: 69 year old male who presented with acute renal failure with urinary retention secondary to enlarged prostate # Acute renal failure secondary to obstructive uropathy with bilateral hydronephrosis - obstruction temporarily relieved with hinton catheter placement, pt continues to have good urine output - Cr trending down, continue to monitor for improvement - nephrology consulted, appreciate their input and recommendations - continue on tamsulosin and finasteride per nephrology # Hypertensive urgency - secondary to urinary retention and pain s/p IV labetalol - further improved today, started on oral amlodipine on admission, continue to monitor - no history of underlying HTN but patient does not follow with a PCP # Enlarged prostate secondary to cancer vs BPH - enlarged prostate on CT with microcalcifications - elevated PSA at 9.3 - urology consulted for evaluation and r/o prostate cancer, appreciate their input and recommendations # Hematuria - likely related to bladder overdistention, expect this to resolve over the next day - UA to rule out infection, one dose IV rocephin given, urine culture negative, no further abx # Elevated anion gap metabolic acidosis, improved - secondary to acute renal failure as discussed above - s/p IV fluids with bicarb, continue with IV fluids per nephrology - anion gap has closed, bicarb has improved - continue on telemetry # Hyperkalemia and Hyperphosphatemia, improving - related to renal failure, continue to trend for improvement - continue on telemetry # Constipation - suspect secondary to obstruction from enlarged prostate and distended urinary bladder - enema ordered today DVT prophylaxis: mechanical, pt up walking a couple hours a day around the [place] Disposition: pending clinical improvement and stabilization of electrolyte abnormalities, will return home on dc Attending attestation: Patient independently evaluated, agree with resident's plan. VS,Fishbone, I+O VS, Fishbone, I+O Laboratory Tests 04/03/20 05:42 Vital Signs Date Time Temp Pulse Resp B/P (MAP) Pulse Ox O2 Delivery O2 Flow Rate FiO2 04/03/20 16:00 99.1 90 20 125/58 (80) 96 Room Air I&O- Last 24 Hours up to 6 AM 04/03/20 05:59 Intake Total 5640 ml Output Total 5525 ml Balance 115 ml PRISCILA ROJAS D.O. Apr 03, 2020 17:14 JULIO MICHAEL MD Apr 06, 2020 10:35
--- NOTE | 2020-04-03 19:13 | IPNPDOC ---
Subjective Review oF Systems Chief Complaint The patient is a 69-year-old male admitted with a reason for visit of BPH, urinary retention, hematuria and acute kidney injury General: Reports: Normal Appetite; Denies: Fatigue, Malaise Objective Physical Examination General Exam: Alert, No Acute Distress Eye Exam: PERRLA, Conjunctiva & lids normal, EOMI; No: Sclera icteric Other physical findings Urinary catheter is still being tolerated well. It is draining bloody urine. Patient states he is not drinking much fluids. Vital Signs/I&O Vital Signs Date Time Temp Pulse Resp B/P (MAP) Pulse Ox O2 Delivery O2 Flow Rate FiO2 04/03/20 16:00 99.1 90 20 125/58 (80) 96 Room Air I&O- Last 24 Hours up to 6 AM 04/03/20 06:00 Intake Total 5940 ml Output Total 6725 ml Balance -785 ml Laboratory Data Labs 24H Laboratory Tests 2 04/03/20 05:42: Nucleated Red Blood Cells % (auto) 0.0, Anion Gap 6L, Glomerular Filtration Rate 29.1L, Calcium Level 7.9L, Phosphorus Level 3.3#, Iron Level 40L, Total Iron Binding Capacity 196L, Transferrin % Saturation 20.4, Ferritin 289, Albumin 3.0L 04/03/20 18:39: CBC/BMP Laboratory Tests 04/03/20 05:42 Microbiology Microbiology 04/02/20 Urine Culture - Final, Complete Assessment/Plan Date Seen The patient was seen on 04/03/20. Problems (1) Urinary retention Status: Acute Response to Treatment: Stable Urology Problem Text: Patient is tolerating his Louis catheter well. He continues to drain hematuric urine. Louis catheter will need to remain in place until prostate enlargement can be addressed. Likely he'll need a TUR prostate or trial of voiding after tamsulosin and finasteride treatment. (2) Renal failure Status: Acute Urology Problem Text: Acute kidney injury is improving daily with the EGFR rising. (3) Obstructive uropathy Urology Problem Text: Continue with tamsulosin and finasteride. (4) Elevated PSA Urology Problem Text: A split PSA has been ordered. Likely he elevated PSA secondary to his prostate size of 127 g, but there is a chance patient of course could have a prostate cancer. Outpatient prostate ultrasound may be necessary. Plan/VTE VTE Prophylaxis Ordered?: No Plan Plan to continue Louis catheterization, hydrate and may need to begin manual bladder lavage through the indwelling Louis catheter. MARLIN HEALY MD Apr 03, 2020 19:13
[2020-04-03] MEDS ORDERED: SLF 3 ML SYR IV PRN (19:30)
[2020-04-03 20:00] VITALS: BP 140/68
[2020-04-03] MEDS: TAMSULOSIN 0.4 MG CAP PO SCH (20:40)
[2020-04-03] MEDS: FINASTERIDE 5 MG TAB PO SCH (20:40)
[2020-04-03] MEDS: SLF 3 ML SYR IV SCH (20:41)
--- NOTE | 2020-04-03 22:46 | IPNPDOC ---
Date Seen The patient was seen on 04/03/20. Progress Note SUBJECTIVE: Jas was seen and examined this morning by the nephrology service while lying in bed. He continues to feel better and reports improved energy. His Hinton catheter remains in place, but his hematuria appears to be worse today versus yesterday. He was seen and examined yesterday evening by the urology service and reports likely needing an outpatient follow-up for further workup of enlarged prostate. He continues to have good urine output and his blood pressure is better controlled this morning. He has yet to have a bowel movement since being admitted, even after yesterday's MiraLAX administration. He is eating and drinking without any issues and denies any fever, chills, night sweats, chest pain, shortness of breath, or significant abdominal pain/nausea/vomiting overnight or this morning. OBJECTIVE PHYSICAL EXAMINATION: VITAL SIGNS: Please see below. GENERAL APPEARANCE: Elderly male lying in bed at time of exam. No acute distress. Alert and oriented 3. He is interactive with good eye contact. HEENT: Normocephalic, atraumatic. Wearing eyeglasses. There is injected sclera along the right lower eyelid line. There remains present from previous days. As though this right lower eyelid is somewhat pulled down. Sclera is anicteric. Moist mucous membranes without pharyngeal erythema or exudate. Trachea is midline. Neck is supple. No lymphadenopathy, thyromegaly, or JVD appreciated. RESPIRATORY: Lungs are clear to auscultation bilaterally with no adventitious breath sounds appreciated. Symmetric chest expansion. Breathing room air and speaking full senses. CARDIOVASCULAR: Regular rate, regular rhythm. Positive S1, S2. 2+ radial pulses bilaterally. No JVD. Negative hepatojugular reflex. ABDOMEN: Soft and nondistended. Has little to no tenderness over the left lower quadrant and suprapubic areas, which is a significant improvement over previous exams. Normoactive bowel sounds throughout. A Hinton catheter remains in place with significantly more hematuria today than on exam yesterday. There appears to be about 600 mL of debby blood tinged urine that has drained since the bag was last emptied. No CVA tenderness and no sacral edema EXTREMITIES: Lower extremities are free of edema. 2+ posterior tibial pulses bilaterally. No signs of clubbing or cyanosis. NEUROLOGICAL: Awake, alert and oriented 3. No focal neurologic deficits appreciated. Non-dysarthric speech. Follows questions and commands appropriately. PSYCHIATRIC: Mood and affect appear appropriate. LABORATORY DATA, IMAGING STUDIES, MICROBIOLOGY: Please see below. PROBLEMS: #Acute renal failure secondary to obstructive uropathy causing bilateral hydroureteronephrosis -He continues to have good urine output and has urinated off 8-1/2 L since being admitted 2 days ago. Over the past 24 hours. His net balance is -1800 mL. His serum creatinine and BUN levels continue to improve. However, his hematuria appears to be worse today versus yesterday. IV fluids had been stopped, and we w ill order a subsequent liter of half-normal saline to be administered. #Hematuria -Hematuria appears to be worse today versus yesterday with much greater amount. Patient had been receiving 5000 units of heparin every 12 hours for DVT prophylaxis. Patient has been walking around his room over the past day or so and as such, the heparin will be held. DVT prophylaxis. For time being. May be executed via teds and sequentials. We will flush his Hinton catheter. His IV fluids had been stopped, but we will order another liter of half-normal saline 150 mL/hr. The fluids will likely be completed by this evening and we will hold off from her the resuscitation and assesses renal function again tomorrow morning. #Anemia -Patient had a nearly 2. drop in hemoglobin today from yesterday, down to 9.9. Iron studies showed low serum iron and low TIBC with a borderline transferrin saturation percentage of 20.4%. From a renal standpoint, in the context of low serum iron, transferrin saturation percentage below 20% indicates iron may be given. In the context of his anemia with low iron and low TIBC and borderline transferrin percentage, patient will be given a one time dose of 200 mg Venofer IV. #High anion gap metabolic acidosis -Patient had been receiving IV bicarbonate with normal saline fluid resuscitation. Bicarbonate significantly improved and normalized yesterday. Bicarbonate again today is within normal range. Patient's hyperkalemia was likely secondary to the acidosis and with correction of acidosis via IV fluids and bicarbonate, his potassium returned to normal range. It is important to note that post obstructive diuresis may cause resultant hypokalemia. #Obstructive uropathy and enlarged prostate -PSA screen was elevated yesterday and urology service has been consulted and saw the patient yesterday evening. He will likely need outpatient urology follow-up to assess enlarged prostate and rule out possible prostate cancer. #Hypertension -Blood pressure appears to be better controlled this morning after 5 mg of amlodipine was initiated yesterday. #Constipation -Patient has not had a bowel movement since being admitted and did not seem to gain much benefit from yesterday's administration of MiraLAX. Mineral oil enema was ordered today. Thank you for allowing the nephrology service to participate in the care of Jas. We will continue to follow along during his inpatient clinical course. Should questions or concerns arise from a renal standpoint, please do contact us, thank you. VS, I&O, 24H, Fishbone Vital Signs/I&O Vital Signs Date Time Temp Pulse Resp B/P (MAP) Pulse Ox O2 Delivery O2 Flow Rate FiO2 04/03/20 20:00 98.8 83 18 140/68 (92) 98 Room Air I&O- Last 24 Hours up to 6 AM 04/03/20 06:00 Intake Total 5940 ml Output Total 6725 ml Balance -785 ml Laboratory Data 24H LABS Laboratory Tests 2 04/03/20 05:42: Nucleated Red Blood Cells % (auto) 0.0, Anion Gap 6L, Glomerular Filtration Rate 29.1L, Calcium Level 7.9L, Phosphorus Level 3.3#, Iron Level 40L, Total Iron Binding Capacity 196L, Transferrin % Saturation 20.4, Ferritin 289, Albumin 3.0L 04/03/20 18:39: CBC/BMP Laboratory Tests 04/03/20 05:42 Microbiology Microbiology 04/02/20 Urine Culture - Final, Complete GME ATTESTATION GME ATTESTATION My faculty preceptor for this patient encounter was physically present during the encounter and was fully available. All aspects of the patient interview, examination, medical decision making process, and medical care plan development were reviewed and approved by the faculty preceptor. The faculty preceptor is aware and concurs with the plan as stated in the body of this note and will attest to such by his/her cosignature. ATTENDING NOTE EVERARDO sec to Bilat Hydroureteronephrosis Enlarged prostate with mass Hematuria Iron def anemia HTN constipation. Keep hinton and replace UOP with 1/2 NS. Iv iron for anemia. Stop HeparinSQ due to hematuria. Amlodipine for HTN. Mineral oil enema PRN. Angela LOVE RODRIGUEZO. Apr 03, 2020 22:46 AMEE HENNESSY MD Apr 07, 2020 11:29
[2020-04-04] VITALS (7 sets, daily range): BP systolic 128–161; BP diastolic 66–83
[2020-04-04] MEDS: SLF 3 ML SYR IV SCH ×3 (05:38→21:17)
[2020-04-04 06:00] LABS: HEMATOCRIT 30.2 % (42.0-52.0); HEMOGLOBIN 10.1 g/dl (13.5-17.5); MEAN CORPUSCULAR HEMOGLOBIN 28.9 pg (27.0-33.0); MEAN CORPUSCULAR HGB CONC 33.4 g/dl (32.0-36.5); MEAN CORPUSCULAR VOLUME 86.5 fl (80.0-96.0); PLATELET COUNT, AUTOMATED 314 10^3/uL (150-450); RED BLOOD COUNT 3.49 10^6/uL (4.30-6.10); WHITE BLOOD COUNT 6.2 10^3/uL (4.0-10.0)
[2020-04-04 06:23] LABS: CALCIUM LEVEL 8.1 MG/DL (8.8-10.2); CREATININE FOR GFR 1.43 MG/DL (0.70-1.30); MAGNESIUM LEVEL 1.5 MG/DL (1.8-2.4); PHOSPHORUS LEVEL 2.7 MG/DL (2.5-4.9); POTASSIUM SERUM 4.3 MEQ/L (3.5-5.1)
[2020-04-04] MEDS: amLODIPine 5 MG TAB PO SCH (08:03)
[2020-04-04] MEDS ORDERED: MAG SULF 1GM/100ML (MAG RUN) 1 GM in IV 1 EA IV ONE (11:00)
--- NOTE | 2020-04-04 13:01 | IPNPDOC ---
Text Note Date of Service The patient was seen on 04/04/20. NOTE SUBJECTIVE: Patient was seen and examined today sitting up on the edge of the bed. He had just returned from walking laps around the unit. He states he is feeling very well. His Hinton catheter is draining a clear, slightly pink tinged urine. He denies any pain. OBJECTIVE: VITAL SIGNS: See below GENERAL: Alert, comfortable, in no acute distress HEENT: Normocephalic, atraumatic, sclera anicteric, conjunctiva clear, moist mucous membranes NECK: Supple, trachea midline, no lymphadenopathy, no JVD CARDIOVASCULAR: Regular rate and rhythm, normal S1 and S2. No murmurs, rubs, or gallops RESPIRATORY: Clear to auscultation bilaterally with equal air entry bilaterally. No wheezing, rhonchi, or rales. ABDOMEN: Soft, nondistended, bowel sounds present, mildly tender to deep palp ation of the suprapubic region. EXTREMITIES: No cyanosis or edema. Pulses 2+/4 in bilateral upper and lower extremities SKIN: [place], warm, dry NEUROLOGIC: Alert and oriented x3 to person, place and time. No focal deficits appreciated PSYCHIATRIC: Mood and affect appropriate ASSESSMENT/PLAN: 69 year old male who presented with acute renal failure with urinary retention secondary to enlarged prostate # Acute renal failure secondary to obstructive uropathy with bilateral hydronephrosis - obstruction temporarily relieved with hinton catheter placement, pt continues to have good urine output - Cr trending down, continue to monitor for improvement - nephrology consulted, appreciate their input and recommendations - continue on tamsulosin and finasteride per nephrology # Hypertensive urgency - secondary to urinary retention and pain s/p IV labetalol - further improved today, started on oral amlodipine on admission, continue to monitor - no history of underlying HTN but patient does not follow with a PCP # Enlarged prostate secondary to cancer vs BPH - enlarged prostate on CT with microcalcifications - elevated PSA at 9.3 - urology consulted for evaluation and r/o prostate cancer, appreciate their input and recommendations # Acute anemia secondary to hematuria and iron deficiency - likely related to bladder overdistention, seems to be resolving, H/H stable this morning - UA to rule out infection, one dose IV rocephin given, urine culture negative, no further abx - one dose of venofer given for low iron # Elevated anion gap metabolic acidosis, improved - secondary to acute renal failure as discussed above - s/p IV fluids. anion gap has closed, bicarb has improved - continue on telemetry # Hyperkalemia and Hyperphosphatemia, resolved - related to renal failure, continue to trend for improvement - continue on telemetry # Constipation, resolved - suspect secondary to obstruction from enlarged prostate and distended urinary bladder - BM this morning, no blood noted DVT prophylaxis: mechanical, pt up walking for a couple hours a day around the [place] Disposition: pending clinical improvement and stabilization of electrolyte abnormalities, will return home on dc Attending attestation: Patient independently evaluated, agree with resident's plan. VS,Fishbone, I+O VS, Fishbone, I+O Laboratory Tests 04/04/20 05:38 Vital Signs Date Time Temp Pulse Resp B/P (MAP) Pulse Ox O2 Delivery O2 Flow Rate FiO2 04/04/20 08:03 74 161/83 04/04/20 07:02 97.9 18 99 Room Air I&O- Last 24 Hours up to 6 AM 04/04/20 06:00 Intake Total 1140 ml Output Total 5125 ml Balance -3985 ml PRISCILA ROJAS D.O. Apr 04, 2020 13:01 JULIO MICHAEL MD Apr 06, 2020 10:36
--- NOTE | 2020-04-04 18:56 | IPNPDOC ---
Subjective Review oF Systems Chief Complaint The patient is a 69-year-old male admitted with a reason for visit of hematuria, BPH, and significantly enlarged prostate. Events since Last Encounter Patient states that since yesterday, he began to feel significantly better. He states that all of the systems have improved and he thinks he has returned back to normal. General: Reports: Normal Appetite; Denies: Fatigue, Malaise Constitutional: Denies: Fever, Chills, Sweats, Weakness, Malaise Eyes: Denies: Pain, Vision change ENT: Denies: Head Aches, Sore Throat, Epistaxis Skin: Denies: Rash, Lesions, Breakdown, Nail Changes Pulmonary: Denies: Dyspnea, Cough Cardiovascular: Denies Chest Pain, Denies Palpitations Gastrointestinal: Denies: Nausea, Vomiting, Abdominal Pain Genitourinary: Denies: Dysuria, Frequency, Incontinence, Hematuria Hematologic: Denies: Bruising, Bleeding Excessively Endocrine: Denies: Polydipsia, Polyphagia, Polyuria Musculoskeletal: Denies: Neck Pain, Back Pain Neurological: Denies: Weakness, Numbness, Incoordination, Change in Speech Objective Physical Examination General Exam: Alert, No Acute Distress Eye Exam: PERRLA, Conjunctiva & lids normal, EOMI; No: Sclera icteric ENT EXAM: Atraumatic, Mucous membr. moist/pink, Pharynx Normal Neck Exam: Supple; No: JVD, thyromegaly Chest Exam: Clear to auscultation, Normal air movement Heart Exam: Positive: Rate Normal, Regular Rhythm, Normal S1, Normal S2; Negative: Murmurs, Rubs Telemetry: No significant arrhythmia ABDOMEN EXAM: Normal bowel sounds, Soft; No: Tenderness, Hepatospenomegaly Other physical findings The patient was tolerating the Louis catheter well in the urine is now clear yellow. Vital Signs/I&O Vital Signs Date Time Temp Pulse Resp B/P (MAP) Pulse Ox O2 Delivery O2 Flow Rate FiO2 04/04/20 16:00 98.5 70 18 128/66 (86) 96 Room Air I&O- Last 24 Hours up to 6 AM 04/04/20 06:00 Intake Total 1140 ml Output Total 5125 ml Balance -3985 ml Laboratory Data Labs 24H Laboratory Tests 2 04/04/20 05:38: Nucleated Red Blood Cells % (auto) 0.0, Anion Gap 8, Glomerular Filtration Rate 52.0, Calcium Level 8.1L, Phosphorus Level 2.7, Magnesium Level 1.5L CBC/BMP Laboratory Tests 04/04/20 05:38 Microbiology Microbiology 04/02/20 Urine Culture - Final, Complete Assessment/Plan Date Seen The patient was seen on 04/04/20. Problems (1) Urinary retention Status: Acute Response to Treatment: Stable Urology Problem Text: Patient is tolerating his Louis catheter well and the urine is now clear yellow. He has no bladder spasms. His Louis catheter should remain in place and after discharge. He'll be scheduled for an office cystoscopy to further evaluate his bladder, hematuria and enlarged prostate. His elevated PSA will also be addressed, but that at this time is still pending. (2) Renal failure Status: Acute Urology Problem Text: Renal function continues to improve and is now almost back to normal. (3) Obstructive uropathy Urology Problem Text: Continue with tamsulosin and finasteride and plan to send the patient home with his Louis catheter indwelling. Disability removed in the office at time of cystoscopy and he will have a trial of voiding at that time. (4) Elevated PSA Urology Problem Text: A split PSA has been ordered, but results are still pending Plan/VTE VTE Prophylaxis Ordered?: No Plan Patient may be discharged from a urologic standpoint. The Louis indwelling and continue his tamsulosin and finasteride as an outpatient. I will arrange for an office cystoscopy to further evaluate the reason for his hematuria and urinary retention, prostate will then again be evaluated. In light of his new impending split PSA. If this number still elevated. He will be scheduled for a transrectal ultrasound and biopsy. MARLIN HEALY MD Apr 04, 2020 18:56
[2020-04-04] MEDS: FINASTERIDE 5 MG TAB PO SCH (21:17)
[2020-04-04] MEDS: TAMSULOSIN 0.4 MG CAP PO SCH (21:17)
[2020-04-05] VITALS: BP 132/74
[2020-04-05 04:04] VITALS: BP 149/77
[2020-04-05] MEDS: SLF 3 ML SYR IV SCH (05:30)
[2020-04-05 06:00] VITALS: BP 132/66
[2020-04-05 06:41] LABS: HEMOGLOBIN 10.2 g/dl (13.5-17.5); MEAN CORPUSCULAR HEMOGLOBIN 28.7 pg (27.0-33.0); MEAN CORPUSCULAR HGB CONC 32.9 g/dl (32.0-36.5); MEAN CORPUSCULAR VOLUME 87.1 fl (80.0-96.0); PLATELET COUNT, AUTOMATED 320 10^3/uL (150-450); RED BLOOD COUNT 3.56 10^6/uL (4.30-6.10); WHITE BLOOD COUNT 6.7 10^3/uL (4.0-10.0)
[2020-04-05 07:04] LABS: BLOOD UREA NITROGEN 23 MG/DL (7-18); CALCIUM LEVEL 8.3 MG/DL (8.8-10.2); CARBON DIOXIDE LEVEL 28 MEQ/L (21-32); CHLORIDE LEVEL 105 MEQ/L (98-107); GLOMERULAR FILTRATION RATE > 60.0 (>42); GLUCOSE, FASTING 95 MG/DL (70-100); MAGNESIUM LEVEL 1.8 MG/DL (1.8-2.4); PHOSPHORUS LEVEL 2.5 MG/DL (2.5-4.9); POTASSIUM SERUM 3.9 MEQ/L (3.5-5.1); SODIUM LEVEL 138 MEQ/L (136-145)
[2020-04-05] MEDS ORDERED: FLOM0.4C39 PO (07:49)
[2020-04-05] MEDS ORDERED: FINA5TAB2 PO (07:49)
[2020-04-05] MEDS ORDERED: AMLO5TAB6 PO (07:49)
[2020-04-05] MEDS ORDERED: FERROUS GLUCONATE 324 MG TAB PO SCH (09:00)
[2020-04-05] MEDS: amLODIPine 5 MG TAB PO SCH (09:00)
--- NOTE | 2020-04-05 10:47 | DS.PDOC ---
Discharge Summary General Date of Admission Apr 01, 2020 at 17:17 Date of Discharge 04/05/2020 Attending Physician: JULIO MICHAEL MD Discharge Summary PROCEDURES PERFORMED DURING STAY: None. ADMITTING DIAGNOSES: 1. Metabolic acidosis 2. Hyperkalemia 3. EVERARDO secondary to obstructive uropathy 4. Enlarged prostate 5. Constipation 6. Elevated blood pressure 7. Anorexia DISCHARGE DIAGNOSES: 1. Metabolic acidosis, resolved 2. Hyperkalemia, resolved 3. EVERARDO secondary to obstructive uropathy 4. Enlarged prostate 5. Constipation, resolved 6. Hypertension 7. Anorexia, resolved COMPLICATIONS/CHIEF COMPLAINT: Hyperkalemia. HISTORY OF PRESENT ILLNESS: 69 year old male who presented to the ED complaining of 5 days of constipation. He states he has noticed some decreased urine production but denies any difficulty urinating, dysuria, frequency, or urgency. He has had some decreased appetite worsening over this time and decreased fluid intake. He endorses nausea without vomiting. He also has been having mild headache for which he takes aspirin. He does not follow with a PCP. He was found to have urinary retention with a distended bladder and an enlarged prostate on CT imaging. He was also found to have acute kidney injury with subsequent metabolic acidosis. HOSPITAL COURSE: The patient was admitted to the hospital. Nephrology was consulted and a hinton catheter was placed with preliminary urinary output of over 1 L. He was started on IV fluids, initially with bicarbonate, for the EVERARDO with metabolic acidosis. He also had multiple electrolyte abnormalities and was kept on telemetry to monitor his cardiac rhythm. He initially had hematuria which improved throughout his admission. There was no evidence of infection on UA. His kidney function improved each day and IV fluids were managed by nephrology. His symptoms improved and he was able to have a BM and eat a regular diet. On admission he was also found to be hypertensive. He was started on amlodipine with good effect. He was also started on finasteride and tamsulosin for his enlarged prostate. Urology was consulted and elected to keep the hinton catheter in place at discharge with outpatient follow up for cystoscopy and further evaluate of his enlarged prostate, which may be due to BPH vs prostate cancer. His inital PSA was 9.34. The patient was evaluated by PT prior to discharge and was found to be safe for discharge home. DISCHARGE MEDICATIONS: Please see below. ALLERGIES: Please see below. PHYSICAL EXAMINATION ON DISCHARGE: VITAL SIGNS: Please see below. GENERAL: Alert, comfortable, in no acute distress HEENT: Normocephalic, atraumatic, sclera anicteric, conjunctiva clear, moist mucous membranes NECK: Supple, trachea midline, no lymphadenopathy, no JVD CARDIOVASCULAR: Regular rate and rhythm, normal S1 and S2. No murmurs, rubs, or gallops RESPIRATORY: Clear to auscultation bilaterally with equal air entry bilaterally. No wheezing, rhonchi, or rales. ABDOMEN: Soft, nondistended, bowel sounds present, nontender. EXTREMITIES: No cyanosis or edema. Pulses 2+/4 in bilateral upper and lower extr emities SKIN: [place], warm, dry NEUROLOGIC: Alert and oriented x3 to person, place and time. No focal deficits appreciated PSYCHIATRIC: Mood and affect appropriate LABORATORY DATA: Please see below. IMAGING: - XR abdomen: Possible mild small bowel ileus - CT abdomen/pelvis: 1. There is marked distention of the urinary bladder with evidence of a urinary bladder floor mass versus invagination of an irregular prostate gland into the posterior urinary bladder. This needs to be evaluated urologically. 2. There is advanced thickening of Zuckerkandl and Gerota fascia bilaterally but left greater than right with advanced bilateral perinephric stranding. This needs to be followed to resolution. 3. There is ascites of uncertain etiology. This too, needs to be evaluated clinically with followup. 4. There is a slight left pleural effusion with evidence of dependent subsegmental atelectatic change in the left lung base. Correlate clinically to right upper lobe out the possibility of subtle concomitant left lower lobe pneumonia. 5. Other findings as described in full report PROGNOSIS: Good ACTIVITY: As tolerated. DIET: As tolerated DISCHARGE PLAN: Home with hinton catheter, follow up with urology, nephrology, and new PCP DISPOSITION: HOME DISCHARGE INSTRUCTIONS: 1. Follow up with Urology and Nephrology as scheduled 2. Please see the PCP you have been scheduled with for overall medical management 3. Please take all medications as prescribed 4. Please keep the hinton catheter in place until evaluated by the urologist in the outpatient setting. ITEMS TO FOLLOWUP ON ON OUTPATIENT: 1. Enlarged prostate causing obstructive uropathy, hinton in place 2. Hypertension 3. Acute renal failure, improved DISCHARGE CONDITION: Stable. TIME SPENT ON DISCHARGE: Greater than 35 minutes. Attending attestation: Patient independently evaluated, agree with resident's plan. Vital Signs/I&Os Vital Signs Date Time Temp Pulse Resp B/P (MAP) Pulse Ox O2 Delivery O2 Flow Rate FiO2 04/05/20 06:00 98.6 64 18 132/66 (88) 92 Room Air l I&O- Last 24 Hours up to 6 AM 04/05/20 05:59 Intake Total 1400 ml Output Total 2900 ml Balance -1500 ml Laboratory Data Labs 24H Laboratory Tests 2 04/05/20 06:26: Nucleated Red Blood Cells % (auto) 0.0, Anion Gap 5L, Glomerular Filtration Rate > 60.0, Calcium Level 8.3L, Phosphorus Level 2.5, Magnesium Level 1.8 CBC/BMP Laboratory Tests 04/05/20 06:26 Microbiology Microbiology 04/02/20 Urine Culture - Final, Complete Discharge Medications Scheduled Amlodipine Besylate (Amlodipine Besylate) 5 Mg Tablet, 5 MG PO DAILY Finasteride (Finasteride) 5 Mg Tablet, 5 MG PO QHS Tamsulosin HCl (Flomax) 0.4 Mg Capsule, 0.4 MG PO QHS Allergies Coded Allergies: No Known Allergies (Unverified , 04/01/20) PRISCILA ROJAS D.O. Apr 05, 2020 10:47 JULIO MICHAEL MD Apr 06, 2020 10:40
--- NOTE | 2020-04-05 15:14 | IPN ---
DATE: 04/04/2020 SUBJECTIVE: The patient was seen and examined at the bedside today morning. He is afebrile, hemodynamically stable. He still has an indwelling Louis catheter. His hematuria is significantly better. His renal function continues to improve. He got mineral oil enema yesterday and reports that he had a bowel movement after that. He denies any other active complaints. OBJECTIVE: Vital signs: Temperature is 98.6 degrees Fahrenheit, blood pressure 149/80, pulse is 85, respiratory rate of 18, saturating 99% on room air. Intake and output: Urine output recorded is 5.4 liters yesterday, 2.5 liters so far today since overnight. Weight in the bed scale is stable at 65.4 kg. PHYSICAL EXAMINATION: General: The patient is awake, alert, oriented times three, sitting up in the bed in no apparent distress. Head and neck exam: Extraocular muscles intact. Pupils equally round and reactive to light. Mucous membranes are moist. Neck is supple. There is no JVD. Cardiovascular: S1, S2, regular rate. No edema of the bilateral lower extremities. Respiratory: Chest is clear to auscultation bilaterally. Bilateral equal air entry. No rales or rhonchi. Abdomen: Soft, positive bowel sounds. Nontender. No organomegaly. Genitourinary: He has an indwelling Louis catheter. Urine in the bag is clearing now, is pink-colored. Musculoskeletal: No clubbing or cyanosis. Pulses are 2+. 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 Power is 5/5 in all extremities. LABORATORY REVIEW: CBC showed WBC 6.2, hemoglobin 10.1, platelets are 314. BMP showed sodium 141, potassium 4.3, chloride 107, bicarbonate 26, BUN 27, creatinine 1.4, calcium 8.1, magnesium 1.5. Microbiology: Urine culture is negative so far. CURRENT INPATIENT MEDICATIONS: The patient's medications were all reviewed by myself. He was given Maxifed 1 gram IV times one dose today morning by myself. His IV fluids have been stopped. ASSESSMENT/PLAN: 1. Acute renal failure secondary to obstructive uropathy and bilateral hydroureteronephrosis. The patient continues to be making very good progress. Renal function is improving. He had postobstructive diuresis that is slowing down now. Continue the Louis catheter on discharge. 2. Hematuria. It is resolving. Heparin has been stopped. Hematuria is significantly better. 3. Anemia secondary to blood loss. The patient's iron level was low. He was given IV Venofer yesterday. Hemoglobin level is improving now. 4. Hypomagnesemia. The patient was given Maxifed 1 gram IV today morning. 5. Constipation. It resolved after mineral oil enema, the patient had a bowel movement yesterday. 6. Hypertension. The patient's blood pressure is stable. Continue current dose of amlodipine 5 mg by mouth daily. DISPOSITION: Patient's renal function is improving. Hopefully we should be able to discharge the patient home by tomorrow morning.
--- NOTE | 2020-04-05 17:46 | IPNPDOC ---
Date Seen The patient was seen on 04/05/20. Progress Note SUBJECTIVE: Jas was seen and examined this morning by the nephrology service while sitting on the side of his bed. He is fully dressed and prepared to be discharged today from the hospital. He is feeling well and continues to have the Louis catheter in place with the collection bag adhered to his left leg. His renal function continues to improve on a daily basis and he continues to make a good amount of urine. His hematuria is significantly reduced from 2 days ago. He is tolerating solids and liquids without any issues. He denies any fever, chills, night sweats, chest pain, shortness of breath, nausea, or vomiting either overnight or this morning. OBJECTIVE PHYSICAL EXAMINATION: VITAL SIGNS: Please see below. GENERAL APPEARANCE: Elderly male sitting on side of his bed. No acute distress. Alert and oriented 3. HEENT: Normocephalic, atraumatic. Wearing eyeglasses. There remains injected sclera along the right lower eyelid line.it appears as though this right lower eyelid is somewhat pulled down. Sclera is anicteric. Moist mucous membranes without pharyngeal erythema or exudate. Trachea is midline. Neck is supple. No lymphadenopathy, thyromegaly, or JVD appreciated. RESPIRATORY: Lungs are clear to auscultation bilaterally with no adventitious breath sounds appreciated. Symmetric chest expansion. Breathing room air and speaking full senses. CARDIOVASCULAR: Regular rate, regular rhythm. Positive S1, S2. 2+ radial pulses bilaterally. No JVD. ABDOMEN: Soft and nondistended and nontender. Normoactive bowel sounds throughout. A Louis catheter remains in place with collection bag adhered to his left leg. EXTREMITIES: Lower extremities are free of edema. 2+ posterior tibial pulses bilaterally. No signs of clubbing or cyanosis. NEUROLOGICAL: Awake, alert and oriented 3. No focal neurologic deficits appreciated. Non-dysarthric speech. PSYCHIATRIC: Mood and affect appear appropriate. LABORATORY DATA, IMAGING STUDIES, MICROBIOLOGY: Please see below. PROBLEMS: #Acute renal failure secondary to obstructive uropathy causing bilateral hydroureteronephrosis He is being discharged today and will follow-up on April [address] Mckeon as outpatient. Since the Louis catheter was placed, his renal function has improved on a daily basis and he continues to make good amount of daily urine. The increased hematuria from 2 days ago has all but resolved. The postobstructive diuresis has also become less of an issue. He will continue with the Louis catheter upon discharge and will be following up with both urology and the nephrology service as an outpatient. #Hematuria Heparin was stopped 2 days ago due to an increase in hematuria. Hematuria has significantly improved and is resolving well. He will be discharged with the Louis catheter remaining in place. #Anemia Patient's hemoglobin has improved slightly from 2 days ago when his iron level was low and he was given one-time dose of 2 mg IV Venofer. #Hypomagnesemia Magnesium improved to 1.8 today after he was given 1 g of IV Maxifed yesterday. #Obstructive uropathy and enlarged prostate Urology service is following. Initial PSA screen was elevated and total PSA is still pending. Patient will follow-up with both urology and nephrology on outpatient basis. Louis catheter will remain in place upon discharge. Renal function improved daily after Louis catheter was placed. #Hypertension -Blood pressure appears to be better controlled this morning after 5 mg of amlodipine was initiated after presentation. Thank you for allowing the nephrology service to participate in the care of Jas. We will see him for follow-up as outpatient on 04/19/20. VS, I&O, 24H, Fishbone Vital Signs/I&O Vital Signs Date Time Temp Pulse Resp B/P (MAP) Pulse Ox O2 Delivery O2 Flow Rate FiO2 04/05/20 06:00 98.6 64 18 132/66 (88) 92 Room Air I&O- Last 24 Hours up to 6 AM 04/05/20 05:59 Intake Total 1400 ml Output Total 2900 ml Balance -1500 ml Laboratory Data 24H LABS Laboratory Tests 2 04/05/20 06:26: Nucleated Red Blood Cells % (auto) 0.0, Anion Gap 5L, Glomerular Filtration Rate > 60.0, Calcium Level 8.3L, Phosphorus Level 2.5, Magnesium Level 1.8 CBC/BMP Laboratory Tests 04/05/20 06:26 Microbiology Microbiology 04/02/20 Urine Culture - Final, Complete GME ATTESTATION GME ATTESTATION My faculty preceptor for this patient encounter was physically present during the encounter and was fully available. All aspects of the patient interview, examination, medical decision making process, and medical care plan development were reviewed and approved by the faculty preceptor. The faculty preceptor is aware and concurs with the plan as stated in the body of this note and will attest to such by his/her cosignature. ATTENDING NOTE EVERARDO sec to Bilat HUN and Urine retention Hematuria Iron def anemia HTN Enlarged prostate/Mass? Keep Louis on DC. EVERARDO resolved. Keep flomax,Finasteride and amlodipine. Follow up with Urology on DC. Follow up with Nephrology within 2 week after discharge. LOVE GRACE D.O. Apr 05, 2020 17:46 AMEE HENNESSY MD Apr 07, 2020 12:52
[2020-04-06 00:07] LABS: PSA TOTAL 33.8 ng/mL (0.0-4.0)
== END 2020-04-05 13:15 | disposition home health service (06) | DRG 683 ==
LOC: M ED 11:09 → M ED INP 17:17 → ENRESERV 17:49 → M PCU 18:50 → M MSPAV 04-05 04:04
PROVIDERS: ADMIT Family Medicine; ATTEND Internal Medicine
DX: N17.9 Acute kidney failure, unspecified (principal); E87.2 Acidosis; D62 Acute posthemorrhagic anemia; K59.00 Constipation, unspecified; R33.9 Retention of urine, unspecified; R97.20 Elevated prostate specific antigen [PSA]; D50.9 Iron deficiency anemia, unspecified; E87.5 Hyperkalemia; N13.9 Obstructive and reflux uropathy, unspecified; N40.1 Benign prostatic hyperplasia with lower urinary tract symptoms; N13.30 Unspecified hydronephrosis; R63.0 Anorexia; I10 Essential (primary) hypertension; E83.39 Other disorders of phosphorus metabolism; I16.0 Hypertensive urgency; R31.9 Hematuria, unspecified; Z87.891 Personal history of nicotine dependence

== ENCOUNTER → 2020-04-11 | Outpatient (REF) | payer MEDICARE, BC ==
[~2020-04-11] MED LIST: AMLO1TAB24 PO; CIPR500T3 PO; FERR32TA PO; FINA5TAB2 PO; FLOM0.4C39 PO
[2020-04-11 19:42] LABS: BASO % 0.6 % (0.0-1.0); EOS # 0.2 10^3/uL (0.0-0.5); EOS % 2.4 % (0.0-3.0); HEMATOCRIT 31.5 % (42.0-52.0); HEMOGLOBIN 10.1 g/dl (13.5-17.5); LYMPH # 1.6 10^3/uL (1.5-5.0); MEAN CORPUSCULAR HEMOGLOBIN 29.2 pg (27.0-33.0); MEAN CORPUSCULAR HGB CONC 32.1 g/dl (32.0-36.5); MONO # 0.7 10^3/uL (0.0-0.8); MONO % 9.6 % (0.0-5.0); NEUTROPHILS # 4.3 10^3/uL (1.5-8.5); NEUTROPHILS % 63.7 % (36.0-66.0); PLATELET COUNT, AUTOMATED 380 10^3/uL (150-450); RED BLOOD COUNT 3.46 10^6/uL (4.30-6.10); WHITE BLOOD COUNT 6.7 10^3/uL (4.0-10.0)
[2020-04-11 19:50] LABS: ALBUMIN 3.5 GM/DL (3.2-5.2); BILIRUBIN,TOTAL 0.3 MG/DL (0.2-1.0); CALCIUM LEVEL 8.7 MG/DL (8.8-10.2); CREATININE FOR GFR 1.33 MG/DL (0.70-1.30); GLOMERULAR FILTRATION RATE 56.6 (>42); POTASSIUM SERUM 4.1 MEQ/L (3.5-5.1); TOTAL PROTEIN 6.7 GM/DL (6.4-8.2)
== END ==
LOC: M LAB REF 17:21
PROVIDERS: ATTEND Family Medicine Addiction Medicine
DX: D64.89 Other specified anemias (principal); N17.8 Other acute kidney failure

== ENCOUNTER → 2020-05-06 | Outpatient (CLI) | payer BC ==
--- NOTE | 2020-06-13 14:55 | ECGEPIP ---
[facility] Test Date: 2020-05-06 Pat Name: FAVIO CORDERO Department: Room: - Gender: Male Pv Design Engineer: NABIL : [id number] Requested By: MARLIN Christian Order Number: [id number] Reading MD: Iram Angela Measurements Intervals [place] Rate: 76 P: 69 NV: 148 QRS: 61 QRSD: 89 T: 42 QT: 377 QTc: 424 Interpretive Statements SINUS RHYTHM NORMAL EKG SEE SCANNED DOWNTIME REPORT
--- NOTE | 2020-06-18 08:45 | REP ---
CHEST TWO-VIEWS HISTORY: Preop benign prostatic hypertrophy. TECHNIQUE: Two views of the chest were performed. FINDINGS: There is no acute infiltrate. Lungs are clear. Heart is normal in size. There is mild calcification of the thoracic aorta. Mediastinal silhouette is unremarkable. Visualized osseous structures are intact. IMPRESSION: No active pulmonary disease. MTDD
[2020-07-08 08:35] LABS: HEMATOCRIT 33.5 % (42.0-52.0); HEMOGLOBIN 10.6 g/dl (13.5-17.5); MEAN CORPUSCULAR HEMOGLOBIN 28.6 pg (27.0-33.0); MEAN CORPUSCULAR HGB CONC 31.6 g/dl (32.0-36.5); MEAN CORPUSCULAR VOLUME 90.5 fl (80.0-96.0); PLATELET COUNT, AUTOMATED 249 10^3/uL (150-450); WHITE BLOOD COUNT 6.8 10^3/uL (4.0-10.0)
[2020-07-08 08:51] LABS: APPEARANCE, URINE HAZY (CLEAR); BACTERIA, URINE AUTO 2+ (NEGATIVE); BILIRUBIN, URINE AUTO NEGATIVE (NEGATIVE); BLOOD, URINE BLOOD 1+ (NEGATIVE); COLOR, URINE YELLOW (YELLOW); GLUCOSE, URINE (UA) AUTO NEGATIVE (NEGATIVE); KETONE, URINE AUTO NEGATIVE (NEGATIVE); LEUKOCYTE ESTERASE, URINE AUTO 1+ (NEGATIVE); MUCUS, URINE SMALL (NEGATIVE); NITRITE, URINE AUTO NEGATIVE (NEGATIVE); PROTEIN, URINE AUTO 1+ mg/dL (NEGATIVE); RBC, URINE AUTO 6 /HPF (0-3); SPECIFIC GRAVITY URINE AUTO 1.011 (1.002-1.035); SQUAMOUS EPITHELIAL CELL UR AU 0 /HPF (0-6); UROBILINOGEN, URINE AUTO 0.2 mg/dL (0.0-2.0); WBC, URINE AUTO 16 /HPF (0-3)
== END ==
LOC: M RAD 09:56
PROVIDERS: ATTEND Urology
DX: Z01.818 Encounter for other preprocedural examination (principal)

== ENCOUNTER 2020-05-15 13:30 | Day surgery (SDC) | payer MEDICARE, BC ==
[~2020-05-15] VITALS: Ht 175.3 cm; Wt 65.3 kg
[~2020-05-15 13:30] MED LIST changes: -CIPR500T3 PO; -FERR32TA PO
[2020-05-15] MEDS ORDERED: ceFAZolin 2 GM/D5W 50 ML IV BAG (J0690 PER 500MG) As Ordered ONE (14:09)
[2020-05-15] MEDS ORDERED: FERR32TA PO (14:10)
[2020-05-15] MEDS ORDERED: CIPR500T3 PO (14:10)
[2020-05-15] MEDS ORDERED: ROCURONIUM BROMIDE 50 MG/5 ML VIAL As Ordered ONE (15:07)
[2020-05-15] MEDS ORDERED: propofoL 200 MG/20 ML VIAL As Ordered ONE ×2 (15:07→18:29)
[2020-05-15] MEDS ORDERED: LIDOCAINE 2% 100MG/5ML SDV (FOR ANES.) As Ordered ONE (15:07)
[2020-05-15] MEDS ORDERED: fentaNYL 100 MCG/2 ML INJECTION (J3010) As Ordered ONE ×3 (15:27→18:40)
[2020-05-15] MEDS ORDERED: METOCLOPRAMIDE INJ 10MG/2ML VIAL (J2765 PER 1) As Ordered ONE (15:28)
[2020-05-15] MEDS ORDERED: MIDAZOLAM INJ 2MG/2ML VIAL (J2250 PER 1MG) As Ordered ONE (15:28)
[2020-05-15] MEDS ORDERED: ONDANSETRON 4MG/2ML VIAL As Ordered ONE (15:28)
[2020-05-15] MEDS ORDERED: dexameTHASONE 4 MG/ML 1ML VIAL (J1100 PER 1MG) As Ordered ONE (15:28)
[2020-05-15] MEDS ORDERED: ceFAZolin 2 GM/D5W 50 ML IV BAG (J0690 PER 500MG) IV ONE (15:42)
[2020-05-15] MEDS ORDERED: FUROSEMIDE 100MG/10ML VIAL (J1940) As Ordered ONE (18:41)
[2020-05-15] MEDS ORDERED: SEVOFLURANE INHAL SOLN 250 ML BTL As Ordered ONE (19:00)
[2020-05-15] MEDS ORDERED: ACETAMINOPHEN TAB 650MG DOSE (2X325MG) PO PRN (19:30)
[2020-05-15] MEDS ORDERED: ONDANSETRON 4MG/2ML VIAL IV PRN (19:30)
[2020-05-15] MEDS ORDERED: fentaNYL 100 MCG/2 ML INJECTION (J3010) IV PRN (19:30)
[2020-05-15 20:35] VITALS: BP 154/75
--- NOTE | 2020-07-04 11:35 | RO ---
DATE OF PROCEDURE: May 15, 2020 PRE-PROCEDURE DIAGNOSIS: Benign prostatic hyperplasia with urinary retention. POST-PROCEDURE DIAGNOSIS: Benign prostatic hyperplasia with urinary retention. PROCEDURES: * Cystoscopy. * Button transurethral electrovaporization of the prostate. SURGEON: Nigel Ribera MD SYSTEMS PLANNER: None. ANESTHESIA: General. OPERATIVE INDICATIONS: This is a 70-year-old male with benign prostatic hyperplasia with urinary retention. He was brought to the operating room today for treatment. DESCRIPTION OF PROCEDURE: The patient was brought to the operating room and general anesthesia was induced. Prophylactic antibiotics were infused. He was then placed in the dorsal lithotomy position and prepped and draped in the usual sterile fashion. At this point, a resectoscope was inserted into the urethral meatus and advanced into the bladder. Of note, the patient had trilobar benign prostatic hyperplasia. I made note of the location of both the ureteral orifices, as well as the verumontanum. At this point, I began vaporizing hyperplastic tissue on the median lobe and then circumferentially at the bladder neck. I then started vaporizing hyperplastic tissue on both lateral lobes. I kept doing this until there was a clear channel established. Throughout the procedure, I made sure not to vaporize too close to the ureteral orifices or distal to the verumontanum. Once a clear channel was established, hemostasis was obtained using the coagulation current. Once satisfied with hemostasis, the resectoscope was removed. An 18-[place] Louis catheter was inserted into the bladder. The balloon was filled with 15 mL of sterile water. The catheter was then connected to gravity drainage. This marked the conclusion of the procedure. The patient was then taken out of the dorsal lithotomy position, awakened from anesthesia, and transported to the recovery room in stable condition. ESTIMATED BLOOD LOSS: 30 mL. COMPLICATIONS: None. SPECIMENS: None. PLAN: The patient will follow up in the Urology Clinic in approximately 5-7 days for catheter removal and a voiding trial. NINOSKA
== END 2020-05-15 20:45 | disposition home or self-care (01) ==
LOC: M SDC 13:30
PROVIDERS: ATTEND Urology
DX: N40.1 Benign prostatic hyperplasia with lower urinary tract symptoms (principal); D64.9 Anemia, unspecified; G47.30 Sleep apnea, unspecified; K21.9 Gastro-esophageal reflux disease without esophagitis; Z79.899 Other long term (current) drug therapy
CPT/HCPCS: 52601; J0690; J1100; J1940; J2250; J2405; J2765; J3010

== ENCOUNTER → 2020-05-28 | Outpatient (CLI) | payer MEDICARE, BC ==
[~2020-05-28] MED LIST changes: +CIPR500T3 PO; +FERR32TA PO
[2020-05-31 21:08] LABS: PSA % FREE 8.4 % (.); PSA FREE 0.37 ng/mL; PSA TOTAL 4.4 ng/mL (0.0-4.0)
== END ==
LOC: M LAB 12:50
PROVIDERS: ATTEND Nurse Practitioner Family
DX: R97.20 Elevated prostate specific antigen [PSA] (principal)

== ENCOUNTER → 2021-01-06 | Outpatient (REF) | payer MEDICARE, BC ==
[2021-01-06 13:29] LABS: ALBUMIN 4.2 GM/DL (3.2-5.2); ALT/SGPT 17 U/L (12-78); BILIRUBIN,TOTAL 0.6 MG/DL (0.2-1.0); BLOOD UREA NITROGEN 26 MG/DL (7-18); CALCIUM LEVEL 9.2 MG/DL (8.8-10.2); CARBON DIOXIDE LEVEL 26 MEQ/L (21-32); CHLORIDE LEVEL 108 MEQ/L (98-107); CHOLESTEROL LEVEL 216 MG/DL (<200); CHOLESTEROL RISK RATIO 2.918 (<5); CREATININE FOR GFR 1.09 MG/DL (0.70-1.30); GLOMERULAR FILTRATION RATE > 60.0 (>42); GLUCOSE, FASTING 103 MG/DL (70-100); HDL CHOLESTEROL 74 MG/DL (>40); LDL CHOLESTEROL 130 MG/DL (<100); NON-HDL-C 142 MG/DL; POTASSIUM SERUM 4.4 MEQ/L (3.5-5.1); SODIUM LEVEL 140 MEQ/L (136-145); THYROID STIMULATING HORMONE 0.974 uIU/ML (0.358-3.740); TOTAL PROTEIN 6.9 GM/DL (6.4-8.2); TRIGLYCERIDES LEVEL 61 MG/DL (<150)
== END ==
LOC: M LAB REF 12:34
PROVIDERS: ATTEND Family Medicine Addiction Medicine
DX: I10 Essential (primary) hypertension (principal)

== ENCOUNTER → 2021-01-28 | Outpatient (REF) | payer MEDICARE, BC ==
[2021-01-28 19:01] LABS: PERCENT SATURATION 29.5 % (19.7-50.0)
== END ==
LOC: M LAB REF 17:09
PROVIDERS: ATTEND Internal Medicine Nephrology
DX: D50.9 Iron deficiency anemia, unspecified (principal)

== ENCOUNTER → 2021-08-06 | Outpatient (REF) | payer MEDICARE, BC | LOC: M LAB REF 13:05 | PROVIDERS: ATTEND Nurse Practitioner Family | DX: N18.2 Chronic kidney disease, stage 2 (mild) (principal) ==

== ENCOUNTER → 2022-07-09 | Outpatient (REF) | payer BC, MEDICARE ==
[2022-07-09 12:20] LABS: ALBUMIN 4.2 GM/DL (3.2-5.2); BILIRUBIN,TOTAL 0.6 MG/DL (0.2-1.0); CALCIUM LEVEL 9.2 MG/DL (8.8-10.2); CHOLESTEROL RISK RATIO 3.142 (<5); CREATININE FOR GFR 1.3 MG/DL (0.70-1.30); GLOMERULAR FILTRATION RATE 57.6 (>42); POTASSIUM SERUM 4.5 MEQ/L (3.5-5.1); TOTAL PROTEIN 6.9 GM/DL (6.4-8.2)
[2022-07-09 12:21] LABS: THYROID STIMULATING HORMONE 1.82 uIU/ML (0.358-3.740)
== END ==
LOC: M LAB REF 11:36
PROVIDERS: ATTEND Family Medicine Addiction Medicine
DX: I10 Essential (primary) hypertension (principal)

== ENCOUNTER → 2022-10-09 | Outpatient (REF) | payer BC, MEDICARE ==
[2022-10-09 17:15] LABS: ALBUMIN 4.3 G/DL (3.2-5.2); ALKALINE PHOSPHATASE 80 U/L (46-116); ALT/SGPT 16 U/L (7.0-40); AST/SGOT 22 U/L (<34); BILIRUBIN,TOTAL 0.6 MG/DL (0.3-1.2); BLOOD UREA NITROGEN 21 MG/DL (9-23); CALCIUM LEVEL 9.3 MG/DL (8.3-10.6); CARBON DIOXIDE LEVEL 29 MMOL/L (20-31); CHLORIDE LEVEL 106 MMOL/L (98-107); CHOLESTEROL LEVEL 203 MG/DL (<200); CREATININE FOR GFR 1.01 MG/DL (0.70-1.30); GLOMERULAR FILTRATION RATE > 60.0 (>42); GLUCOSE, FASTING 81 MG/DL (74-106); HDL CHOLESTEROL 61.4 MG/DL (>40); NON-HDL-C 142 MG/DL; SODIUM LEVEL 140 MMOL/L (136-145); TOTAL PROTEIN 6.6 G/DL (5.7-8.2); TRIGLYCERIDES LEVEL 83 MG/DL (<150)
[2022-10-09 17:16] LABS: THYROID STIMULATING HORMONE 1.511 uIU/ML (0.55-4.78)
== END ==
LOC: M LAB REF 16:19
PROVIDERS: ATTEND Family Medicine Addiction Medicine
DX: I10 Essential (primary) hypertension (principal)

== ENCOUNTER → 2023-03-10 | Outpatient (REF) | payer BC, MEDICARE ==
[2023-03-10 13:31] LABS: ALBUMIN 4.3 G/DL (3.2-5.2); ALKALINE PHOSPHATASE 87 U/L (46-116); ALT/SGPT 15 U/L (7.0-40); AST/SGOT 19 U/L (<34); BILIRUBIN,TOTAL 0.6 MG/DL (0.3-1.2); BLOOD UREA NITROGEN 21 MG/DL (9-23); CALCIUM LEVEL 8.8 MG/DL (8.3-10.6); CARBON DIOXIDE LEVEL 28 MMOL/L (20-31); CHLORIDE LEVEL 106 MMOL/L (98-107); CHOLESTEROL LEVEL 193 MG/DL (<200); CHOLESTEROL RISK RATIO 2.97 (<5); CREATININE FOR GFR 0.98 MG/DL (0.70-1.30); GLOMERULAR FILTRATION RATE > 60.0 (>42); GLUCOSE, FASTING 87 MG/DL (74-106); HDL CHOLESTEROL 64.8 MG/DL (>40); LDL CHOLESTEROL 109.2 MG/DL (<100); NON-HDL-C 128.2 MG/DL; POTASSIUM SERUM 4.8 MMOL/L (3.5-5.1); SODIUM LEVEL 138 MMOL/L (136-145); TOTAL PROTEIN 6.6 G/DL (5.7-8.2); TRIGLYCERIDES LEVEL 95 MG/DL (<150)
[2023-03-10 13:33] LABS: THYROID STIMULATING HORMONE 1.558 uIU/ML (0.55-4.78)
== END ==
LOC: M LAB REF 12:01
PROVIDERS: ATTEND Family Medicine Addiction Medicine
DX: I10 Essential (primary) hypertension (principal)

== ENCOUNTER 2023-10-12 08:43 | Day surgery (SDC) | payer BC, MEDICARE ==
[~2023-10-12] VITALS: Ht 175.3 cm; Wt 70.9 kg
[~2023-10-12 08:43] MED LIST changes: +LIDOCAINE 2% W/EPINEPHRINE 20ML VIAL **PRES FREE As Ordered ONE; +LOSA50TA28 PO; +MIDAZOLAM INJ 2MG/2ML VIAL As Ordered ONE; +PROPARACAINE 0.5% OPHTH SOL 15ML OD ONE; +fentaNYL 100 MCG/2 ML INJECTION As Ordered ONE
[2023-10-12] MEDS ORDERED: POVIDONE-IODINE 5% OPHTH PREP SOL 30ML As Ordered ONE (11:15)
[2023-10-12] MEDS ORDERED: propofoL 200 MG/20 ML VIAL As Ordered ONE (11:18)
[2023-10-12] MEDS ORDERED: TOBRADEX OPHTH OINT 3.5 GM As Ordered ONE (11:56)
[2023-10-12 12:08] VITALS: TEMP 97.1; O2SAT 99
[2023-10-12 12:12] VITALS: BP 178/98
== END 2023-10-12 12:39 | disposition home or self-care (01) ==
LOC: M SDC 08:43
PROVIDERS: ATTEND Ophthalmology
DX: H02.102 Unspecified ectropion of right lower eyelid (principal); I10 Essential (primary) hypertension; Z79.899 Other long term (current) drug therapy; Z87.891 Personal history of nicotine dependence; Z90.49 Acquired absence of other specified parts of digestive tract
CPT/HCPCS: 67917; J0665; J2250; J3010

== ENCOUNTER 2025-04-23 08:25 | Day surgery (SDC) | payer BC ==
[~2025-04-23] VITALS: Ht 175.3 cm; Wt 68.9 kg
[~2025-04-23 08:25] MED LIST changes: +CYCLOPENTOLATE 1% OPHTH SOLN 2 ML BTL OS SCH; -FLOM0.4C39 PO; +FLURBIPROFEN 0.03% OPHTH SOLN 2.5 ML OS SCH; -LIDOCAINE 2% W/EPINEPHRINE 20ML VIAL **PRES FREE As Ordered ONE; +LR 1,000 ML IV SCH; -MIDAZOLAM INJ 2MG/2ML VIAL As Ordered ONE; +PHENYLEPHRINE 2.5% OPHTH SOL 2ML OS SCH; -PROPARACAINE 0.5% OPHTH SOL 15ML OD ONE; +TAMS-18 PO; +TETRACAINE 0.5% OPHTH SOLN 4ML OS SCH; -fentaNYL 100 MCG/2 ML INJECTION As Ordered ONE
[2025-04-23] MEDS ORDERED: MIDAZOLAM INJ 2 MG/2 ML VIAL As Ordered ONE (10:24)
[2025-04-23] MEDS: LIDOCAINE 1% SDV 5 ML VIAL As Ordered ONE (11:32)
[2025-04-23] MEDS: CEFUROXIME 1 MG/0.1 ML INTRACAMERAL INJ As Ordered ONE (11:36)
[2025-04-23 11:50] VITALS: BP 173/81; TEMP 97.5; O2SAT 99
== END 2025-04-23 12:03 | disposition home or self-care (01) ==
LOC: M SDC 08:25
PROVIDERS: ATTEND Ophthalmology
DX: H25.12 Age-related nuclear cataract, left eye (principal); I10 Essential (primary) hypertension; N40.1 Benign prostatic hyperplasia with lower urinary tract symptoms; N13.8 Other obstructive and reflux uropathy; Z79.899 Other long term (current) drug therapy; Z90.49 Acquired absence of other specified parts of digestive tract; Z90.89 Acquired absence of other organs
CPT/HCPCS: 66984; J0697; J2250; J3010; V2632

== ENCOUNTER 2025-05-21 07:00 | Day surgery (SDC) | payer BC, MEDICARE ==
[~2025-05-21] VITALS: Ht 175.3 cm; Wt 70.6 kg
[~2025-05-21 07:00] MED LIST changes: -CYCLOPENTOLATE 1% OPHTH SOLN 2 ML BTL OS SCH; -FLURBIPROFEN 0.03% OPHTH SOLN 2.5 ML OS SCH; -PHENYLEPHRINE 2.5% OPHTH SOL 2ML OS SCH; -TETRACAINE 0.5% OPHTH SOLN 4ML OS SCH; +TIMO0.5S20
[2025-05-21] MEDS ORDERED: MIDAZOLAM INJ 2 MG/2 ML VIAL As Ordered ONE (07:06)
[2025-05-21] MEDS: FLURBIPROFEN 0.03% OPHTH SOLN 2.5 ML OD SCH (08:00)
[2025-05-21] MEDS: CYCLOPENTOLATE 1% OPHTH SOLN 2 ML BTL OD SCH (08:00)
[2025-05-21] MEDS: PHENYLEPHRINE 2.5% OPHTH SOL 2ML OD SCH (08:00)
[2025-05-21] MEDS: TETRACAINE 0.5% OPHTH SOLN 4ML OD SCH (08:00)
[2025-05-21] MEDS: LIDOCAINE 1% SDV 5 ML VIAL As Ordered ONE (09:17)
[2025-05-21] MEDS: CEFUROXIME 1 MG/0.1 ML INTRACAMERAL INJ As Ordered ONE (09:17)
[2025-05-21 09:36] VITALS: BP 178/82; TEMP 97.2; O2SAT 98
== END 2025-05-21 09:44 | disposition home or self-care (01) ==
LOC: M SDC 07:00
PROVIDERS: ATTEND Ophthalmology
DX: H25.9 Unspecified age-related cataract (principal); Z79.899 Other long term (current) drug therapy
CPT/HCPCS: 66984; J0697; J2250; J3010; V2632

== ENCOUNTER → 2025-09-10 | Outpatient (CLI) | payer BC ==
[~2025-09-10] MED LIST changes: -LR 1,000 ML IV SCH
== END ==
LOC: M EKG 11:18
PROVIDERS: ATTEND Family Medicine Addiction Medicine
DX: Z01.818 Encounter for other preprocedural examination (principal)